=== PATIENT | male | born 1970 | race Asian ===

== ENCOUNTER 2020-09-26 09:36 | Outpatient (REF) | payer OTHER, SELFPAY ==
[2020-09-26 11:24] LABS: MANUAL DIFF FLAG NO
[2020-09-26 11:39] LABS: Glucose Urine UA NEG (NEG); Leukocyte Esterase Urine NEG (NEG); Nitrite Urine NEG (NEG); PH 7.5 (5.0-8.0); Specific Gravity - Urine 1.015 (1.005-1.025); Urine Blood NEG (NEG); Urine Ketones NEG (NEG); Urine Protein NEG (NEG-TRACE)
[2020-09-26 11:43] LABS: Appearance Urine HAZY; Color Urine YELLOW
[2020-09-26 11:48] LABS: Alanine Aminotransferase 31 U/L (0-40); Albumin Level 4.5 g/dL (3.5-5.0); Alkaline Phosphatase 104 U/L (39-117); Anion Gap 11 (12-20); Aspartate Amino Transferase 22 U/L (5-37); Bilirubin Total 0.6 mg/dL (0.0-1.0); Blood Urea Nitrogen 12 mg/dL (9-16); C Reactive Protein 0.14 mg/dL (< or = 0.50); Calcium 9.1 mg/dL (8.4-10.2); Carbon Dioxide 27 mmol/L (22-29); Chloride 108 mmol/L (96-108); Cholesterol 197 mg/dL; Estimated Glomerular Filt Rate > 60; Glucose Fasting 96 mg/dL (60-99); HDL Cholesterol 40 mg/dL; LDL Cholesterol Calculated 134 mg/dl; Potassium 4.3 mmol/L (3.3-5.1); Sodium 142 mmol/L (135-145); Total Protein 6.9 g/dL (6.5-8.0); Triglycerides 119 mg/dL; Troponin-I High Sensitivity < 3.5 ng/L (<3.5-35.0)
[2020-09-26 11:53] LABS: Basophils Percent Auto 0.6 % (0-2); Eosinophils Absolute Auto 0.3 X10*3/uL (0.0-0.4); Eosinophils Percent Auto 6.3 % (0-4); Hematocrit 46.5 % (42-52); Hemoglobin 14.8 g/dl (14.0-18.0); Imm Gran Abs Auto 0.01 X10*3/uL (0.00-0.03); Imm Gran Pct Auto 0.2 % (0.0-0.4); Lymphocytes Absolute Auto 1.9 X10*3/uL (1.2-4.9); Lymphocytes Percent Auto 38.8 % (20-40); Mean Corpuscular HGB Conc 31.8 g/dl (31.0-36.0); Mean Corpuscular Hemoglobin 25.8 pg (27.0-33.0); Mean Corpuscular Volume 81.2 fL (80-98); Mean Platelet Volume 9.1 fL (9.4-12.4); Monocytes Absolute Auto 0.4 X10*3/uL (0.1-1.2); Monocytes Percent Auto 7.7 % (2-11); Neutrophils Absolute Auto 2.3 X10*3/uL (2.0-8.3); Neutrophils Percent Auto 46.4 % (45-73); Platelet Count 256 X10*3/uL (160-400); Red Blood Count 5.73 X10*6/uL (4.60-5.80); Red Cell Distribution Width 14.2 % (11.0-16.0); White Blood Count 4.9 X10*3/uL (4.8-10.8)
[2020-09-26 12:12] LABS: Prostate Specific Antigen Scr 0.39 ng/mL (<0.05-4.0); TSH reflex Free T4 0.92 uIU/mL (0.32-4.0); Vitamin D 25-OH Total 21.6 ng/mL (>30)
== END 2020-09-26 09:37 | disposition home or self-care (01) ==
LOC: HO.LAB 09:36
PROVIDERS: PCP Internal Medicine; Visit Provider Internal Medicine
DX: Z00.00 Encounter for general adult medical examination without abnormal findings (principal); Z12.5 Encounter for screening for malignant neoplasm of prostate; R07.89 Other chest pain; E55.9 Vitamin D deficiency, unspecified; E66.3 Overweight; F17.200 Nicotine dependence, unspecified, uncomplicated
CPT/HCPCS: 36415; 80053; 80061; 81003; 82306; 84153; 84443; 84484; 85025; 86140

== ENCOUNTER → 2020-10-10 10:07 | Outpatient (BNVA) | payer OTHER, SELFPAY | PROVIDERS: PCP Internal Medicine; Visit Provider Physician Assistant | DX: Z12.11 Encounter for screening for malignant neoplasm of colon (principal) | CPT/HCPCS: 99202 ==

== ENCOUNTER 2020-11-15 08:30 | Day surgery (SDC) | payer OTHER, SELFPAY ==
[2020-11-09 15:45] VITALS: BMI 27.6
--- NOTE | 2020-11-14 08:25 | HO.ANESPROP2 ---
Documented by User: Liya Salinas 11/14/20 08:28 HPI - Anesthesia Eval Consult details Narrative: 49yo M for Colonoscopy [facility] Active Problems Active Problems: All Active Problems (Updated 10/10/20 @ 10:56 by Renetta Puentes PA-C) Annual physical exam (Acute) Colon cancer screening (Acute) Overweight (BMI 25.0-29.9) (Acute) Smoker (Acute) Chest discomfort (Acute) Past Medical History Medical History Chest discomfort Overweight (BMI 25.0-29.9) Smoker Family History Family History (Updated 10/10/20 @ 10:40 by Renetta Puentes PA-C) Unknown No family history of colorectal cancer Surgical History Surgical History (Updated 11/09/20 @ 15:45 by Olive Hobbs) No history of previous surgery Social History Social History (Updated 10/10/20 @ 10:40 by Renetta Puentes PA-C) Household Members Other:: no children Alcohol intake: never Patient Tobacco Use Status: Current everyday Tobacco user Tobacco use type: Cigarette Cigarettes Per Day: 8 Smoked in Last 30 Days: Yes Are you DNR?: No Advance Directives: No Advance Directives Information Provided: No Advance Directives on File: No 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 Meds Allergies Allergy/AdvReac Type Severity Reaction Status Date / Time No Known Allergies Allergy Verified 11/09/20 15:44 Exam Exam Date and Time: November 14, 2020 0825 Height,Weight and Vital Signs: Height 5 ft 7 in Weight 79.832 kg Pertinent Lab Results Pertinent Lab Results: Laboratory Tests 09/26/20 09/26/20 10:06 10:06 WBC 4.9 Hgb 14.8 Hct 46.5 Plt Count 256 Sodium 142 Potassium 4.3 Chloride 108 Carbon Dioxide 27 BUN 12 Creatinine 0.76 Assessment and Plan Assessment Anesthesia Assessment: Chart Reviewed Documented by User: Christen Romero 11/15/20 08:38 PMFSH Past Medical History Medical History Chest discomfort Overweight (BMI 25.0-29.9) Smoker Functional capacity: independent ambulation Family History Family History (Updated 10/10/20 @ 10:40 by Renetta Puentes PA-C) Unknown No family history of colorectal cancer Family history of problems with anesthesia: No Surgical History Surgical History (Updated 11/09/20 @ 15:45 by Olive Hobbs) No history of previous surgery History of Problems with Anesthesia: No Social History Social History (Updated 10/10/20 @ 10:40 by Renetta Puentes PA-C) Household Members Other:: no children Alcohol intake: never Patient Tobacco Use Status: Current everyday Tobacco user Tobacco use type: Cigarette Cigarettes Per Day: 8 Smoked in Last 30 Days: Yes Are you DNR?: No Advance Directives: No Advance Directives Information Provided: No Advance Directives on File: No 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
--- NOTE | 2020-11-15 09:00 | MHC.SHP ---
Pre-Procedural Eval Section A Date of Service: 11/15/20 Section B Chief Complaint: Screening Relevant Family History (Specify if Yes): No Relevant Social History: Tobacco Use Present Medications: see Short Stay Collaborative assessment Medical History: Significant History (Overweight (BMI 25.0-29.9) Smoker) History of Previous Operations: No relevant previous surgery Allergies: Allergies Allergy/AdvReac Type Severity Reaction Status Date / Time No Known Allergies Allergy Verified 11/09/20 15:44 Review of Systems Sugical H&P ROS: Negative: Constitution, Cardiovascular, Respiratory, Neurological, Psychiatric, Hem-Onc, Allergic/Immunologic, Gastrointestinal, Genitourinary, Musculoskeletal, Integumentary, Endocrine and Eyes/Ears/Nose/Throat Exam Surgical H&P Exam: Normal: HEENT, Normal: Heart, Normal: Lungs, Normal: Extremities, Normal: Abdomen, Normal: Skin and Normal: Neurological Plan Diagnosis/Plan: Unchanged I have reviewed the history and physical and performed a pertinent physical examination on my patient. No changes have occurred unless specified.
[2020-11-15 09:01] VITALS: BP 114/71; PULSE 60; RESP 16; TEMP 36.2; O2SAT 96
[2020-11-15] MEDS: Lactated Ringers 1,000 ML 100 ML IVCONT (09:19)
--- NOTE | 2020-11-15 09:49 | P.OP_ITS ---
Operative Note Operative Note Date of Service: 11/15/20 Narrative: Operative Information Procedure Description: Colonoscopy COLONOSCOPY Instrument: Olympus variable stiffness pediatric scope 190L Colonoscopy Monitoring: Vital signs and clinical assessment, continuous EKG monitoring, Pulse oximetry, Carbon Dioxide monitoring and blood pressure monitoring were done throughout the procedure. Colon withdrawal time was 10 minutes. Procedure: The patient was placed in the left lateral decubitis position and pre-procedure medications were administered. After a digital rectal examination of the ano-rectum, the video colonoscope was inserted into the rectum and advanced through the colon to the cecum/TI. The colonoscope was slowly withdrawn in a retrograde panoramic fashion and the colon mucosa was carefully examined including a retroflexed view of the rectum. Findings and interventions are described below. Procedure Difficulty:easy Findings: Terminal Ileum-normal Cecum: 4 mm sessile polyp at appendiceal orifice removed with biopsy forceps Ascending Colon: normal Transverse Colon -normal Descending Colon: 5-6 mm sessile polyp removed with forceps Sigmoid Colon: 11-12 mm sessile polyp removed with cold snare Rectum: Retroflexion with small internal hemorrhoids, grade I Anorectum - normal Colon preparation: [place] Bowel Preparation Scale Right colon; 3 Transverse colon: 3 Left colon; 3 (0 = Unprepared colon segment with mucosa not seen due to solid stool that cannot be cleared. 1 = Portion of mucosa of the colon segment seen, but other areas of the colon segment not well seen due to staining, residual stool and/or opaque liquid. 2 = Minor amount of residual staining, small fragments of stool and/or opaque liquid, but mucosa of colon segment seen well. 3 = Entire mucosa of colon segment seen well with no residual staining, small fragments of stool or opaque liquid) Impression and Post Procedure Diagnosis: polyps internal hemorrhoids Plan: High fiber diet leaflet Avoid straining at stool, epsom salts and sitz bath, anusol supps or cream Repeat Colonoscopy in 3-5 years or earlier if clinically indicated Above findings were reviewed with the patient and relevant handouts were provided if indicated.
--- NOTE | 2020-11-15 09:49 | PM.OP ---
Brief Operative Note Date of Service: 11/15/20 Pre-op diagnosis: colon screening Post-op diagnosis: same Procedure: see op note Surgeon: Gabriel Rivera MD Anesthesia: MAC Was an Airconditioning Engineer used for this Procedure?: No Estimated blood loss (mL): 0 Condition: stable Disposition: PACU
--- NOTE | 2020-11-15 10:22 | P.CONAN_ITS ---
[facility] Active Problems Active Problems: All Active Problems (Updated 10/10/20 @ 10:56 by Renetta henley PA-C) Annual physical exam (Acute) Colon cancer screening (Acute) Overweight (BMI 25.0-29.9) (Acute) Smoker (Acute) Chest discomfort (Acute) Past Medical History Medical History Chest discomfort Overweight (BMI 25.0-29.9) Smoker Functional capacity: independent ambulation Family History Family History (Updated 10/10/20 @ 10:40 by Renetta Puentes PA-C) Unknown No family history of colorectal cancer Family history of problems with anesthesia: No Surgical History Surgical History (Updated 11/09/20 @ 15:45 by Olive Hobbs) No history of previous surgery History of Problems with Anesthesia: No Social History Social History (Updated 10/10/20 @ 10:40 by Renetta Puentes PA-C) Household Members Other:: no children Alcohol intake: never Patient Tobacco Use Status: Current everyday Tobacco user Tobacco use type: Cigarette Cigarettes Per Day: 8 Smoked in Last 30 Days: Yes Are you DNR?: No Advance Directives: No Advance Directives Information Provided: No Advance Directives on File: No 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 Allergies Allergy/AdvReac Type Severity Reaction Status Date / Time No Known Allergies Allergy Verified 11/09/20 15:44 Active Medications: Current Medications Generic Name Dose Route Start Last Admin Trade Name Freq PRN Reason Stop Dose Admin Albuterol Sulfate 2.5 mg 11/15/20 08:34 Albuterol Sulfate (0.083%) 2.5 Mg/3 Ml Vial.Neb INHALE ONCE PRN Shortness of Breath/Wheezing Lactated Ringer's 1,000 mls @ 100 mls/hr 11/15/20 08:45 11/15/20 09:19 Lr IVCONT 100 mls/hr .Q10H TORIN Administration Exam Exam Date and Time: November 15, 2020 1022 Height,Weight and Vital Signs: Height 5 ft 7 in Weight 79.832 kg Last Vital Signs Temp 97.1 F 11/15/20 09:01 Pulse 60 11/15/20 09:01 Resp 16 11/15/20 09:01 BP 114/71 11/15/20 09:01 Pulse Ox 96 11/15/20 09:01 Airway TM Dist: >3cm Neck ROM: Full Heart: RRR Lungs: CTA Assessment and Plan Final Anesthetic Review Family History of Problems with Anesthesia: No History of Problems with Anesthesia: No
[2020-11-15 10:30] VITALS: BP 87/46; PULSE 56; RESP 16; TEMP 36; O2SAT 96
[2020-11-15 10:35] VITALS: BP 88/55
[2020-11-15 10:45] VITALS: BP 104/66; PULSE 59; RESP 16; O2SAT 97
--- NOTE | 2020-11-15 11:08 | PC.NURSE ---
took over 10 minutes to get phone certified court interpreter for mandarin. some results explained. md unavailable.
--- NOTE | 2020-11-15 11:08 | PC.NURSE ---
certified court/medical interpreter id [id number]
== END 2020-11-15 11:42 | disposition home or self-care (01) ==
PROVIDERS: PCP Internal Medicine; Visit Provider Internal Medicine Gastroenterology
PROC: 0DJD8ZZ Inspection of Lower Intestinal Tract, Via Natural or Artificial Opening Endoscopic (ICD-10-PCS; CPT 45378; principal; 2020-11-15 09:40)
DX: Z12.11 Encounter for screening for malignant neoplasm of colon (principal); D12.5 Benign neoplasm of sigmoid colon; K63.5 Polyp of colon; K64.0 First degree hemorrhoids; F17.210 Nicotine dependence, cigarettes, uncomplicated
CPT/HCPCS: 45385; 45380; 88305

== ENCOUNTER 2020-12-20 09:58 | Emergency (ER) | payer OTHER, SELFPAY ==
[2020-12-20 10:04] VITALS: BP 127/83; PULSE 83; RESP 18; TEMP 36.9; O2SAT 97; BMI 26.6
--- NOTE | 2020-12-20 11:52 | ED.SKABFB ---
HPI - Skin/Abscess/Foreign Bdy General Chief complaint: Skin/Abscess/Foreign Body Stated complaint: chest pain - states tumor? 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 Symptoms present for several days. No fevers or chills. No prior history of similar issues. Related Data Previous Rx's Medication Instructions Recorded bisacodyl 5 mg tablet,delayed 10 mg PO ONCE 1 Days #2 tab 10/10/20 release (Dulcolax (bisacodyl)) polyethylene glycol 3350 17 238 g PO ONCE 1 Days #238 g 10/10/20 gram/dose oral powder (Miralax) doxycycline hyclate 100 mg capsule 100 mg PO BID #20 cap 12/20/20 Allergies Allergy/AdvReac Type Severity Reaction Status Date / Time No Known Allergies Allergy Verified 11/09/20 15:44 Review of Systems Constitutional: Constitutional: Reports no additional constitutional complaints Cardiovascular: Cardiovascular: Reports no additional cardiovascular complaints Respiratory: Respiratory: Reports no additional respiratory complaints Gastrointestinal: Gastrointestinal: Reports no additional gastrointestinal complaints Musculoskeletal: Musculoskeletal: Reports no additional musculoskeletal complaints Integumentary/Breasts: Comments: Painful red area right lateral chest wall PMFSH Past Medical History Medical History Chest discomfort Overweight (BMI 25.0-29.9) Smoker Surgical History (Updated 11/09/20 @ 15:45 by Olive Hobbs, NIKIA) No history of previous surgery Family History Family History (Updated 10/10/20 @ 10:40 by Renetta Puentes PA-C) Unknown No family history of colorectal cancer Social History Social History (Updated 10/10/20 @ 10:40 by Renetta Puentes PA-C) Household Members Other:: no children Alcohol intake: never Patient Tobacco Use Status: Current everyday Tobacco user Tobacco use type: Cigarette Cigarettes Per Day: 8 Advance Directives: Yes Advance Directives Information Provided: Yes Advance Directives on File: No 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 Central area of fluctuance approximately 3 cm across. No purulent drainage Resp: Other: No respiratory distress GI: Other: Soft nontender nondistended Skin: Other: See above description of chest wall for large area of cellulitis and abscess Neuro: Other: Awake alert oriented without gross motor defect Course Course Course Narrative: Patient tolerated procedure well without complications. Doxycycline given the Emergency Department. Will discharge home with prescription for doxycycline Procedures Abscess I/D Site: chest Side (if applicable): right Local Anesthetic: lidocaine 1% Amount of anesthesia used (mL): 8 Amount of fluid expressed (mL): 40 Sent for culture/gram staining?: No Discharge Plan Discharge Clinical Impression: Abscess of skin or subcutaneous tissue Patient Disposition: Home, Self-Care Instructions: Abscess Incision and Drainage (DC) Additional Instructions: Be sure to shower and to use warm soaks at least twice daily. Take doxycycline until it is finished in 10 days. Return if the area gets worse Prescriptions: New doxycycline hyclate 100 mg capsule 100 mg PO BID Qty: 20 RF: 0 No Action bisacodyl [Dulcolax (bisacodyl)] 5 mg tablet,delayed release (DR/EC) 10 mg PO ONCE 1 Days Qty: 2 RF: 0 polyethylene glycol 3350 [Miralax] 17 gram/dose powder 238 g PO ONCE 1 Days Qty: 238 RF: 0
[2020-12-20] MEDS: Lidocaine HCl 1 % 20 ML VIAL INFILTRATI (12:11)
== END 2020-12-20 12:39 | disposition home or self-care (01) ==
PROVIDERS: Emergency Provider Emergency Medicine; PCP Internal Medicine
DX: L02.213 Cutaneous abscess of chest wall (principal); F17.210 Nicotine dependence, cigarettes, uncomplicated; Z71.6 Tobacco abuse counseling; Z79.899 Other long term (current) drug therapy
CPT/HCPCS: 99283; 99284

== ENCOUNTER 2022-06-18 09:46 | Outpatient (REF) | payer OTHER, SELFPAY ==
[2022-06-18 10:03] LABS: MANUAL DIFF FLAG NO
[2022-06-18 10:50] LABS: Appearance Urine Clear; Color Urine Yellow; Glucose Urine UA Negative (Negative); Leukocyte Esterase Urine Negative (Negative); Nitrite Urine Negative (Negative); PH 6.5 (5.0-9.0); Specific Gravity - Urine 1.025 (1.005-1.025); Urine Blood Negative (Negative); Urine Ketones Negative (Negative); Urine Protein Negative (Neg-Trace)
[2022-06-18 10:51] LABS: Basophils Percent Auto 0.8 % (0-2); Eosinophils Absolute Auto 0.3 X10*3/uL (0.0-0.4); Eosinophils Percent Auto 5.8 % (0-4); Hematocrit 48.8 % (42.0-52.0); Hemoglobin 15.6 g/dl (14.0-18.0); Imm Gran Abs Auto 0.02 X10*3/uL (0.00-0.03); Imm Gran Pct Auto 0.4 % (0.0-0.4); Lymphocytes Absolute Auto 1.9 X10*3/uL (1.2-4.9); Mean Corpuscular Hemoglobin 26.2 pg (27.0-33.0); Mean Platelet Volume 9.1 fL (9.4-12.4); Monocytes Absolute Auto 0.4 X10*3/uL (0.1-1.2); Neutrophils Absolute Auto 2.5 x10*3/uL (2.0-8.3); Platelet Count 252 X10*3/uL (160-400); Red Blood Count 5.95 X10*6/uL (4.60-5.80); Red Cell Distribution Width 14.6 % (11.0-16.0); White Blood Count 5.1 X10*3/uL (4.8-10.8)
[2022-06-18 11:46] LABS: Alanine Aminotransferase 25 U/L (0-40); Albumin Level 4.3 g/dL (3.5-5.0); Alkaline Phosphatase 93 U/L (39-117); Anion Gap 12 (12-20); Aspartate Amino Transferase 19 U/L (5-37); Bilirubin Total 0.5 mg/dL (0.0-1.0); Blood Urea Nitrogen 20 mg/dL (9-16); Calcium 8.7 mg/dL (8.4-10.2); Carbon Dioxide 24 mmol/L (22-29); Chloride 111 mmol/L (96-108); Cholesterol 240 mg/dL; Estimated Glomerular Filt Rate > 60; Glucose Fasting 111 mg/dL (60-99); HDL Cholesterol 46 mg/dL; LDL Cholesterol Calculated 174 mg/dl; Potassium 4.4 mmol/L (3.3-5.1); Sodium 143 mmol/L (135-145); Total Protein 6.8 g/dL (6.5-8.0); Triglycerides 100 mg/dL
[2022-06-18 12:04] LABS: Prostate Specific Antigen Scr 1.48 ng/mL (<0.05-4.0); TSH reflex Free T4 0.87 uIU/mL (0.32-4.0); Vitamin D 25-OH Total 12.9 ng/mL (>30)
== END 2022-06-18 09:47 | disposition home or self-care (01) ==
LOC: HO.LAB 09:46
PROVIDERS: PCP Internal Medicine; Visit Provider Internal Medicine
DX: Z00.00 Encounter for general adult medical examination without abnormal findings (principal); Z12.5 Encounter for screening for malignant neoplasm of prostate; E78.00 Pure hypercholesterolemia, unspecified; R30.0 Dysuria; E55.9 Vitamin D deficiency, unspecified
CPT/HCPCS: 36415; 80053; 80061; 81003; 82306; 84153; 84443; 85025

== ENCOUNTER 2022-06-24 10:17 | Outpatient (REF) | payer OTHER, SELFPAY ==
--- NOTE | ~2022-06-24 | XR_ITS ---
EXAMINATION: XR CHEST CLINICAL INFORMATION: R06.00 - Dyspnea, unspecified COMPARISON: Chest radiographs 08/04/2018 TECHNIQUE: 2 views of the chest were obtained. FINDINGS: The lungs are clear. There is no airspace consolidation, groundglass opacity, or effusion. The heart is normal in size. The vascularity is normal. The hilar and mediastinal contours are stable. No acute bony abnormality. XR/XR chest 2V IMPRESSION: Unremarkable examination.
== END 2022-06-24 10:18 | disposition home or self-care (01) ==
LOC: HO.XRAY 10:17
PROVIDERS: PCP Internal Medicine; Visit Provider Internal Medicine
DX: R06.00 Dyspnea, unspecified (principal); F17.200 Nicotine dependence, unspecified, uncomplicated
CPT/HCPCS: 71046

== ENCOUNTER → 2022-07-01 08:53 | Outpatient (REF) | payer OTHER, SELFPAY ==
--- NOTE | 2022-07-01 08:59 | ECG_ITS ---
Test Reason : chest pain Blood Pressure : / mmHG Vent. Rate : 062 BPM Atrial Rate : 062 BPM P-R Int : 188 ms QRS Dur : 098 ms QT Int : 394 ms P-R-T Axes : 079 062 041 degrees QTc Int : 399 ms Normal sinus rhythm Normal ECG When compared with ECG of 04-AUG-2018 11:34, No significant change was found Referred By: Devon Mendoza Electronically Signed By:BALDO LUO MD
--- NOTE | 2022-07-01 09:00 | CA_ITS ---
Acquisition Time: 2022-07-01 09:19:17 Total Exercise Time: 00:06:41 Test Indications: CP Medications: SEE H Protocol: RAHEEL Max HR: 125 BPM 73% of Pred: 170 BPM Max BP: 154/066 mmHG Max Work Load: 8.0 METS Exercise stress test with exercise 6 min 41 sec of Raheel protocol, acvhieving 73% MPHR with request to stop due to fatigue and sob, with 3/10 mid chest discomfort at baseline ( which he described as continual and worse with pressing on area) which did not change with exercise, without arrythmia, with normotensive response to exercise, with decreased exercise capacity, with nondiagnostic EKG for ischemia due to suboptimal heart rate. In recovery he reported that his mid chest discomfort was up to 4/10 with inspiration. Test reviewed with Dr Lorna Vines sent to PCP with the above report. Referred By: Devon Mendoza Overread By: WOLF COATES
== END ==
LOC: HO.CARD 08:53
PROVIDERS: Visit Provider Internal Medicine
DX: R07.89 Other chest pain (principal)
CPT/HCPCS: 93005; 93017

== ENCOUNTER 2022-11-04 11:00 | Outpatient (AMB) | payer OTHER, SELFPAY ==
[2022-11-04 11:04] VITALS: BP 116/80; PULSE 71; O2SAT 97; BMI 25.8
--- NOTE | 2022-11-04 11:04 | MHC.PC.OV ---
Vital Signs 11/04/22 11:04 Height 5 ft 7 in Weight 165 lb BMI 25.8 BP 116/80 Blood Pressure Location Lt brachial Position Sitting Pulse 71 Pulse Source Pulse Oximeter Pulse Oximetry (%) 97 Oxygen Delivery Method Room Air Intake Visit Reasons: Follow Up Transporter Driver Required: No Accompanied by: Self / Same As Patient Allergies No Known Allergies Allergy (Verified 11/04/22 12:18) Medication List - Last Reconciled 11/04/22 by Devon Mendoza MD mometasone 0.1% 1 appl topical DAILY PRN prednisone 20 mg PO DAILY 5 days Tobacco use date assessed: 11/04/22 Dental Screening Dental Screen Date: 11/04/22 Did you have a dental visit in the last 12 months?: No Did you have a dental problem in the last 6 months where you did not have access to dental care?: No Was dental information given to patient?: No HPI Follow Up HPI Details Patient comes in today for his follow up visit States that he continues to experience on and off mild SOB and chest discomfort with increasing activity although he admits that he also does not really do too much in terms of activity so his symptoms do not occur frequently Did have an exercise stress test done a few months ago that he could not complete due to increased fatigue and SOB but there were no EKG changes noted throughout his test He also had negative chest x-rays done a few months ago Adds that he's had some scattered itchy rash all over, especially over his arms and legs, for a few days now Relates that he went fishing sometime last week and woke up the next day with the rash over his arms and legs, and they have not really cleared up much since He denies any headaches or dizziness No nausea/vomiting, no abdominal pain No change in bowel habits noted Would also like to know how he did on his labs after his last visit back in June 2022 Patient also brought in a clearance form for his eyesight; states that he recently [facility] [place] to see an eye doctor to get his form filled out but was advised that he has no active patient record there and will need his PCP to send them a referral first before they can schedule an appointment to see him [facility] Medical History (Updated 11/04/22 @ 12:47 by Devon Mendoza MD) Chest discomfort Impaired fasting glucose Overweight (BMI 25.0-29.9) Smoker Vitamin D deficiency Surgical History Hx of colonoscopy (~11/15/20) Family History Father Heart disease Other No family history of colorectal cancer Social History Household Members Other:: no children Housing: House Alcohol intake: never Patient Tobacco Use Status: Current everyday Tobacco user Tobacco use type: Cigarette Cigarettes Per Day: 8 e-Cigarette/Vaping Use: Never Used Second Hand Smoke Exposure: Yes 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 1. Little interest or pleasure in doing things: not at all 2. Feeling down, depressed, or hopeless: not at all 3. Trouble falling or staying asleep, or sleeping too much: not at all 4. Feeling tired or having little energy: not at all 5. Poor appetite or overeating: not at all 6. Feeling bad about yourself - or that you are a failure or have let yourself or your family down: not at all 7. Trouble concentrating on things, such as reading the newspaper or watching television: not at all 8. Moving or speaking so slowly that other people could have noticed. Or the opposite - being so fidgety or restless that you have been moving around a lot more than usual: not at all 9. Thoughts that you would be better off or of hurting yourself in some way: not at all Total score: 0 Depression Screening Interpretation: Negative 82201 - PHQ-9 Billing: Yes Source: Developed by Drs. Lucio Do, Stefanie Liu, Nick Willingham and colleagues, with an educational renetta from [employer]. Thrive Questionnaire Date Thrive assessed: 11/04/22 I am a: Patient What is your living situation today?: I have a steady place to live Within the past 12 months, did the food you bought not last and you didn't have the money to get more?: Never true Within the past 12 months, did you worry whether your food would run out before you got money to buy more?: Never true Do you have trouble paying for medicines?: No Do you have trouble getting transportation to medical appointments?: No Do you have trouble paying your heating and electricity bill?: No Do you have trouble taking care of your child, family member or friend?: No Do you have trouble with day-to-day activities such as bathing, preparing meals, shopping, managing finances, etc.?: No Are you currently unemployed and looking for a job?: No Are you interested in more education?: No Please select the resources that you would like help with: None Currently or been in a relationship where the following occur: no concerns reported AUDIT C Alcohol Use Questionnaire (AUDIT-C) 1. How often do you have a drink containing alcohol?: Never 3. How often do you have six or more drinks on one occasion?: Never Total Score: 0 Score Reviewed/Action Taken: Yes KELY-7 AMB Questionnaire KELY-7 Date KELY - 7 assessed: 11/04/22 Feeling nervous, anxious, or on edge: 0 = Not at all Not being able to stop or control worryin = Not at all Worrying too much about different things: 0 = Not at all Trouble relaxin = Not at all Being so restless that it is hard to sit still: 0 = Not at all Becoming easily annoyed or irritable: 0 = Not at all Feeling afraid as if something awful might happen: 0 = Not at all Total KELY-7 score (0-4 normal; 5-9 mild; 10-14 moderate; 15-21 severe): 0 Source: Developed by Drs. Lucio Do, Stefanie Liu, Nick Willingham and colleagues, with an educational renetta from [employer]. Review of Systems Const Denies fatigue, Denies fever(s) and Denies headache(s) ENT Denies dysphagia, Denies dizziness, Denies headache(s), Denies odynophagia and Denies sore throat Card Denies chest pain (but reports (+) on and off chest discomfort - see HPI), Denies rapid heart rate, Denies irregular heart rhythm, Denies palpitations and Reports dyspnea (mild, on and off - see HPI) Resp Denies chest congestion, Denies cough and Reports dyspnea (mild, on and off - see HPI) GI Denies abdominal pain, Denies constipation, Denies dysphagia, Denies heartburn, Denies diarrhea, Denies nausea, Denies odynophagia and Denies vomiting Denies difficulty urinating, Denies dysuria and Denies urinary frequency Musc Denies back pain and Denies arthralgias Skin/Breast Details: scattered itchy rash, especially over his arms and legs Neuro Denies dizziness, Denies headache(s) and Denies paresthesias Endo Denies fatigue and Denies palpitations Physical exam (Primary Care) Vital Signs: Last Vital Signs Pulse 71 11/04/22 11:04 BP 116/80 11/04/22 11:04 Pulse Ox 97 11/04/22 11:04 Oxygen Delivery Method Room Air 11/04/22 11:04 BMI result Body Mass Index 25.8 Tobacco/Smoking Status: Tobacco use Status Tobacco use date assessed 11/04/22 11/04/22 11:11 Patient Tobacco Use Status Current everyday Tobacco 11/04/22 11:11 Tobacco use type Cigarette 11/04/22 11:11 e-Cigarette/Vaping Use Never Used 11/04/22 11:11 PHQ-9: PHQ-9 Score PHQ-9: Total score 0 11/04/22 11:11 Depression Screening Interpretation: Negative Thrive Assessment: Date of Thrive Assessment Date Thrive assessed 11/04/22 11/04/22 11:11 Currently or been in a relationship where the following occur: no concerns reported Const General: no acute distress and alert [facility] Throat: Yes posterior oropharynx normal and Yes tonsils normal (no TP congestion) Neck Neck: Yes no lymphadenopathy and Yes supple Thyroid: Thyroid normal Chest Chest palpation & inspection: normal palpation of entire chest wall (no reproducible tenderness on palpation over the chest wall) Resp Auscultation: clear to auscultation bilaterally, no rales and no wheezes Cardio Rate: regular rate Rhythm: regular rhythm Heart sounds: no murmurs GI Palpation (GI): Soft to palpation and nontender Auscultation: normal bowel sounds Skin Other: (+) scattered erythematous weeping rash over both forearms and lower legs (bilaterally) Extrem General: Yes no clubbing, cyanosis or edema Results Reviewed Results Reviewed: Laboratory Tests 06/18/22 06/18/22 06/18/22 10:00 10:01 10:01 WBC 5.1 Hgb 15.6 Hct 48.8 Plt Count 252 Sodium 143 Potassium 4.4 Creatinine 0.77 Estimated GFR > 60 Fasting Glucose 111 H Calcium 8.7 AST 19 ALT 25 Triglycerides 100 Cholesterol 240 LDL Cholesterol, Calc 174 HDL Cholesterol 46 PSA Screen 1.48 25-OH Vitamin D Total 12.9 TSH 0.87 Ur Specific Range 1.025 Urine Protein Negative Urine Glucose (UA) Negative Urine Blood Negative Assessment and Plan Assessment & Plan (1) Pure hypercholesterolemia: Code(s): E78.00 - Pure hypercholesterolemia, unspecified Plan: Results of his labs done back in June 2022 reviewed and discussed with patient - cautioned/advised that his cholesterol numbers have again increased significantly from previous on his recent labs Reinforced low cholesterol diet Will recheck his labs and fasting lipids in 6 months for follow up (2) Impaired fasting glucose: Code(s): R73.01 - Impaired fasting glucose Plan: Advised that his FBS was elevated on his recent labs at 111 mg/dl Reinforced low calorie diet Will recheck FBS and check HgbA1c in 6 months for follow up / further evaluation (3) Vitamin D deficiency: Code(s): E55.9 - Vitamin D deficiency, unspecified Plan: Advised that his Vitamin D level remains low on his labs and has declined further from a year ago Will start him on Vitamin D3 2000 units QD (4) Chest discomfort: Code(s): R07.89 - Other chest pain Plan: Chest x-rays done earlier this year came out normal Stress testing done a few months ago did not show any EKG changes although patient could not complete the test due to increasing fatigue and SOB Will send him for PFTs to complete his evaluation as patient continues to complain of frequent exertional chest discomfort (5) Poison colin dermatitis: Code(s): L23.7 - Allergic contact dermatitis due to plants, except food Plan: Will start him on oral Prednisone 20 mg QD x 5 days and Mometasone 0.1% cream apply QD to rash PRN (6) Examination of eyes and vision: Code(s): Z01.00 - Encounter for examination of eyes and vision without abnormal findings Plan: [facility] to [facility] and to help him complete his vision exam form (7) Smoker: Code(s): F17.200 - Nicotine dependence, unspecified, uncomplicated Plan: Counseled again on smoking cessation (8) Overweight (BMI 25.0-29.9): Code(s): E66.3 - Overweight Plan: Reinforced diet/exercise as tolerated/lose weight Plan To return in 6 months for his next annual physical examination Orders: Orders PFT pulmonary function test Today F17.200 - Nicotine dependence, unspecified, uncomplicated, R06.00 - Dyspnea, unspecified, R07.89 - Other chest pain Comprehensive [place]. Panel Fast 6 Months Z00.00 - Encounter for general adult medical examination without abnormal findings Lipid Panel 6 Months E78.00 - Pure hypercholesterolemia, unspecified, Z00.00 - Encounter for general adult medical examination without abnormal findings Prostate Specific Antigen Scr 6 Months Z00.00 - Encounter for general adult medical examination without abnormal findings TSH reflex Free T4 6 Months Z00.00 - Encounter for general adult medical examination without abnormal findings Vitamin D 25-OH Total 6 Months E55.9 - Vitamin D deficiency, unspecified, Z00.00 - Encounter for general adult medical examination without abnormal findings Complete Blood Count Auto Diff 6 Months F17.200 - Nicotine dependence, unspecified, uncomplicated, Z00.00 - Encounter for general adult medical examination without abnormal findings UA CC w/rflx Micro + Cult 6 Months R30.0 - Dysuria, Z00.00 - Encounter for general adult medical examination without abnormal findings Hemoglobin A1c 6 Months R73.01 - Impaired fasting glucose Referrals Ophthalmology Referral H57.9 - Unspecified disorder of eye and adnexa Medications: New prednisone 20 mg PO DAILY 5 tabs 0RF 5 days mometasone 0.1% 1 appl topical DAILY PRN 45 grams 0RF rash cholecalciferol (vitamin D3) 50 mcg PO DAILY 90 caps 3RF 90 days E55.9 - Vitamin D deficiency, unspecified Coding Level of Care Code Est Pt Level 4 (62002) Diagnoses Pure hypercholesterolemia E78.00 Impaired fasting glucose R73.01 Vitamin D deficiency E55.9 Chest discomfort R07.89 Poison colin dermatitis L23.7 Examination of eyes and vision Z01.00 Smoker F17.200 Overweight (BMI 25.0-29.9) E66.3
== END 2022-11-04 12:18 | disposition home or self-care (01) ==
PROVIDERS: PCP Internal Medicine; Visit Provider Internal Medicine
DX: E78.00 Pure hypercholesterolemia, unspecified (principal); E55.9 Vitamin D deficiency, unspecified; F17.210 Nicotine dependence, cigarettes, uncomplicated; E66.3 Overweight; R73.01 Impaired fasting glucose; R07.89 Other chest pain; L23.7 Allergic contact dermatitis due to plants, except food; Z68.25 Body mass index [BMI] 25.0-25.9, adult
CPT/HCPCS: 99214

== ENCOUNTER 2023-05-05 10:41 | Outpatient (AMB) | payer OTHER, SELFPAY ==
[2023-05-05 10:44] VITALS: BP 110/80; PULSE 78; O2SAT 96; BMI 26.2
--- NOTE | 2023-05-05 10:44 | MHC.PC.OV ---
Vital Signs 05/05/23 10:44 Height 5 ft 7 in Weight 167 lb 2 oz BMI 26.2 BP 110/80 Blood Pressure Location Lt brachial Position Sitting Pulse 78 Pulse Source Pulse Oximeter Pulse Oximetry (%) 96 Oxygen Delivery Method Room Air Intake Visit Reasons: 6 month f/u Children Librarian Required: No Accompanied by: Self / Same As Patient Allergies No Known Allergies Allergy (Verified 05/05/23 11:03) Medication List - Last Reconciled 05/05/23 by Devon Mendoza MD cholecalciferol (vitamin D3) 50 mcg PO DAILY 90 days mometasone 0.1% 1 appl topical DAILY PRN Tobacco use date assessed: 05/05/23 Dental Screening Dental Screen Date: 05/05/23 Did you have a dental visit in the last 12 months?: No Did you have a dental problem in the last 6 months where you did not have access to dental care?: No Was dental information given to patient?: No HPI 6 month f/u HPI Details Patient comes in today for his follow up visit States that he feels okay He denies any headaches or dizziness Denies any chest pains, no increased SOB but he continues to experience occasional mild chest discomfort although these do not seem to be associated with activity or exertion He had stress testing done last year (June 2022) which came out okay Was referred for PFTs for further evaluation of his symptoms but states that he was never contacted for an appt and did not get this done No nausea/vomiting, no abdominal pain No change in bowel habits noted He was not able to get his follow up labs done prior to his appt today - states that he can go and get them done now as he has not yet eaten anything this morning [facility] Medical History Impaired fasting glucose Vitamin D deficiency Overweight (BMI 25.0-29.9) Smoker Chest discomfort Surgical History Hx of colonoscopy (~11/15/20) Family History Father Heart disease Other No family history of colorectal cancer Social History Household Members Other:: no children Housing: House Alcohol intake: never Patient Tobacco Use Status: Current everyday Tobacco user Tobacco use type: Cigarette Cigarettes Per Day: 8 e-Cigarette/Vaping Use: Never Used Second Hand Smoke Exposure: Yes 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 1. Little interest or pleasure in doing things: not at all 2. Feeling down, depressed, or hopeless: not at all 3. Trouble falling or staying asleep, or sleeping too much: not at all 4. Feeling tired or having little energy: not at all 5. Poor appetite or overeating: not at all 6. Feeling bad about yourself - or that you are a failure or have let yourself or your family down: not at all 7. Trouble concentrating on things, such as reading the newspaper or watching television: not at all 8. Moving or speaking so slowly that other people could have noticed. Or the opposite - being so fidgety or restless that you have been moving around a lot more than usual: not at all 9. Thoughts that you would be better off or of hurting yourself in some way: not at all Total score: 0 Depression Screening Interpretation: Negative Depression Screening Done: Yes 75719 - PHQ-9 Billing: Yes Source: Developed by Drs. Lucio Do, Stefanie Liu, Nick Willingham and colleagues, with an educational renetta from [employer]. Thrive Questionnaire Date Thrive assessed: 05/05/23 I am a: Patient What is your living situation today?: I have a steady place to live Within the past 12 months, did the food you bought not last and you didn't have the money to get more?: Never true Within the past 12 months, did you worry whether your food would run out before you got money to buy more?: Never true Do you have trouble paying for medicines?: No Do you have trouble getting transportation to medical appointments?: No Do you have trouble paying your heating and electricity bill?: No Do you have trouble taking care of your child, family member or friend?: No Do you have trouble with day-to-day activities such as bathing, preparing meals, shopping, managing finances, etc.?: No Are you currently unemployed and looking for a job?: No Are you interested in more education?: No Please select the resources that you would like help with: None Currently or been in a relationship where the following occur: no concerns reported THRIVE Score: 0 AUDIT C Alcohol Use Questionnaire (AUDIT-C) 1. How often do you have a drink containing alcohol?: Never 3. How often do you have six or more drinks on one occasion?: Never Total Score: 0 Score Reviewed/Action Taken: Yes KELY-7 AMB Questionnaire KELY-7 Date KELY - 7 assessed: 05/05/23 Feeling nervous, anxious, or on edge: 0 = Not at all Not being able to stop or control worryin = Not at all Worrying too much about different things: 0 = Not at all Trouble relaxin = Not at all Being so restless that it is hard to sit still: 0 = Not at all Becoming easily annoyed or irritable: 0 = Not at all Feeling afraid as if something awful might happen: 0 = Not at all Total KELY-7 score (0-4 normal; 5-9 mild; 10-14 moderate; 15-21 severe): 0 Source: Developed by Drs. Lucio Do, Stefanie Liu, Nick Willingham and colleagues, with an educational renetta from [employer]. Review of Systems Const Denies chills, Denies fatigue, Denies fever(s) and Denies headache(s) ENT Denies dysphagia, Denies dizziness, Denies otalgia, Denies headache(s), Denies neck pain, Denies odynophagia and Denies sore throat Card Denies chest pain (but still reports (+) on and off chest discomfort ), Denies rapid heart rate, Denies irregular heart rhythm, Denies palpitations and Reports dyspnea (mild, on and off) Resp Denies chest congestion, Denies cough and Reports dyspnea (mild, on and off) GI Denies abdominal pain, Denies constipation, Denies dysphagia, Denies heartburn, Denies diarrhea, Denies nausea, Denies odynophagia and Denies vomiting Denies difficulty urinating, Denies dysuria and Denies urinary frequency Musc Denies back pain, Denies arthralgias and Denies neck pain Skin/Breast Denies rash Neuro Denies dizziness, Denies headache(s) and Denies paresthesias Endo Denies fatigue and Denies palpitations Physical exam (Primary Care) Vital Signs: Last Vital Signs Pulse 78 05/05/23 10:44 BP 110/80 05/05/23 10:44 Pulse Ox 96 05/05/23 10:44 Oxygen Delivery Method Room Air 05/05/23 10:44 BMI result Body Mass Index 26.2 Tobacco/Smoking Status: Tobacco use Status Tobacco use date assessed 05/05/23 05/05/23 10:49 Patient Tobacco Use Status Current everyday Tobacco 05/05/23 10:49 Tobacco use type Cigarette 05/05/23 10:49 e-Cigarette/Vaping Use Never Used 05/05/23 10:49 PHQ-9: PHQ-9 Score PHQ-9: Total score 0 05/05/23 11:05 Depression Screening Interpretation: Negative Thrive Assessment: Date of Thrive Assessment Date Thrive assessed 05/05/23 05/05/23 10:49 Currently or been in a relationship where the following occur: no concerns reported Const General: no acute distress and alert [facility] Ears: TM's normal bilaterally and EAC's normal Throat: Yes posterior oropharynx normal and Yes tonsils normal (no TP congestion) Neck Neck: Yes no lymphadenopathy and Yes supple Thyroid: Thyroid normal Resp Auscultation: clear to auscultation bilaterally, no rales and no wheezes Cardio Rate: regular rate Rhythm: regular rhythm Heart sounds: no murmurs GI Palpation (GI): Soft to palpation and nontender Auscultation: normal bowel sounds General: Yes no CVA tenderness Back/Spine/Pelvis Back: no CVA tenderness Thoracic/Lumbar Spine: No lumbar spinal tenderness Skin Rashes: no rashes Extrem General: Yes no clubbing, cyanosis or edema Assessment and Plan Assessment & Plan (1) Pure hypercholesterolemia: Code(s): E78.00 - Pure hypercholesterolemia, unspecified Plan: Patient was not able to get his labs done prior to his appt today but states that he will go to the lab right after his visit today and get them done [facility] Reinforced low cholesterol diet Will recheck his labs and fasting lipids again in 6 months for follow up (2) Impaired fasting glucose: Code(s): R73.01 - Impaired fasting glucose Plan: His FBS was elevated at 111 mg/dl on his previous lab - will recheck this [place] for follow up; will also check his HgbA1c for further evaluation Reinforced low calorie diet (3) Vitamin D deficiency: Code(s): E55.9 - Vitamin D deficiency, unspecified Plan: Continue Vitamin D3 2000 units QD (4) Chest discomfort: Code(s): R07.89 - Other chest pain Plan: Chest x-rays done last year came out normal Stress testing done last year did not show any EKG changes although patient could not complete the test due to increasing fatigue and SOB He was sent for PFTs to complete his evaluation as patient continues to complain of frequent exertional chest discomfort but he never got this done - respiratory was apparently trying to contact him but he could not be reaches as his phone number on record was lidted incorrectly Will have office verify and list down his correct contact info and we can hopefully get his PFTs scheduled and done - PFTs reordered (5) Smoker: Code(s): F17.200 - Nicotine dependence, unspecified, uncomplicated Plan: Counseled again on smoking cessation (6) Overweight (BMI 25.0-29.9): Code(s): E66.3 - Overweight Plan: Reinforced diet/exercise as tolerated/lose weight Plan To return in 6 months for his next annual physical examination Orders: Orders Comprehensive [place]. Panel Fast 6 Months E78.00 - Pure hypercholesterolemia, unspecified, Z00.00 - Encounter for general adult medical examination without abnormal findings UA CC w/rflx Micro + Cult 6 Months R30.0 - Dysuria, Z00.00 - Encounter for general adult medical examination without abnormal findings Prostate Specific Antigen Scr 6 Months Z00.00 - Encounter for general adult medical examination without abnormal findings Hemoglobin A1c 6 Months R73.01 - Impaired fasting glucose PFT pulmonary function test Today F17.200 - Nicotine dependence, unspecified, uncomplicated, R06.00 - Dyspnea, unspecified, R07.89 - Other chest pain Complete Blood Count Auto Diff 6 Months D64.9 - Anemia, unspecified, Z00.00 - Encounter for general adult medical examination without abnormal findings Lipid Panel 6 Months E78.00 - Pure hypercholesterolemia, unspecified, Z00.00 - Encounter for general adult medical examination without abnormal findings TSH reflex Free T4 6 Months E78.00 - Pure hypercholesterolemia, unspecified, Z00.00 - Encounter for general adult medical examination without abnormal findings Vitamin D 25-OH Total 6 Months E55.9 - Vitamin D deficiency, unspecified, Z00.00 - Encounter for general adult medical examination without abnormal findings Coding Level of Care Code Est Pt Level 4 (03834) Diagnoses Pure hypercholesterolemia E78.00 Impaired fasting glucose R73.01 Vitamin D deficiency E55.9 Chest discomfort R07.89 Smoker F17.200 Overweight (BMI 25.0-29.9) E66.3
== END 2023-05-05 11:21 | disposition home or self-care (01) ==
PROVIDERS: PCP Internal Medicine; Visit Provider Internal Medicine
DX: E78.00 Pure hypercholesterolemia, unspecified (principal); R73.01 Impaired fasting glucose; E55.9 Vitamin D deficiency, unspecified; R07.89 Other chest pain; F17.200 Nicotine dependence, unspecified, uncomplicated; E66.3 Overweight
CPT/HCPCS: 99214

== ENCOUNTER 2023-05-05 11:30 | Outpatient (REF) | payer OTHER, SELFPAY ==
[2023-05-05 11:53] LABS: MANUAL DIFF FLAG NO
[2023-05-05 12:44] LABS: Basophils Percent Auto 0.8 % (0-2); Eosinophils Absolute Auto 0.2 X10*3/uL (0.0-0.4); Eosinophils Percent Auto 4.6 % (0-4); Hematocrit 46.7 % (42.0-52.0); Hemoglobin 14.8 g/dl (14.0-18.0); Imm Gran Abs Auto 0.01 X10*3/uL (0.00-0.03); Imm Gran Pct Auto 0.2 % (0.0-0.4); Lymphocytes Absolute Auto 1.8 X10*3/uL (1.2-4.9); Mean Corpuscular HGB Conc 31.7 g/dl (31.0-36.0); Mean Corpuscular Hemoglobin 26.9 pg (27.0-33.0); Mean Corpuscular Volume 84.9 fL (80.0-98.0); Mean Platelet Volume 9.5 fL (9.4-12.4); Monocytes Absolute Auto 0.5 X10*3/uL (0.1-1.2); Monocytes Percent Auto 9.5 % (2-11); Neutrophils Absolute Auto 2.7 x10*3/uL (2.0-8.3); Neutrophils Percent Auto 50.9 % (45-73); Platelet Count 255 X10*3/uL (160-400); Red Cell Distribution Width 14.6 % (11.0-16.0); White Blood Count 5.3 X10*3/uL (4.8-10.8)
[2023-05-05 12:45] LABS: Estimated Average Glucose 120 mg/dL; Hemoglobin A1c % 5.8 % (<6.0)
[2023-05-05 13:16] LABS: Alanine Aminotransferase 20 U/L (0-40); Albumin Level 4.2 g/dL (3.5-5.0); Alkaline Phosphatase 75 U/L (39-117); Anion Gap 9 (12-20); Aspartate Amino Transferase 16 U/L (5-37); Bilirubin Total 0.6 mg/dL (0.0-1.0); Blood Urea Nitrogen 17 mg/dL (9-16); Calcium 9.1 mg/dL (8.4-10.2); Carbon Dioxide 28 mmol/L (22-29); Chloride 108 mmol/L (96-108); Cholesterol 207 mg/dL (<200); Estimated Glomerular Filt Rate > 60; Glucose Fasting 93 mg/dL (60-99); HDL Cholesterol 46 mg/dL (>40); LDL Cholesterol Calculated 145 mg/dL (<100); Sodium 141 mmol/L (135-145); Total Protein 6.8 g/dL (6.5-8.0); Triglycerides 81 mg/dL (<150)
[2023-05-05 13:33] LABS: TSH reflex Free T4 0.98 uIU/mL (0.32-4.0); Vitamin D 25-OH Total 29.9 ng/mL (>30)
[2023-05-05 13:36] LABS: Prostate Specific Antigen Scr 0.64 ng/mL (<0.05-4.0)
[2023-05-05 15:36] LABS: Appearance Urine Clear; Color Urine Yellow; Glucose Urine UA Negative (Negative); Leukocyte Esterase Urine Negative (Negative); Nitrite Urine Negative (Negative); Specific Gravity - Urine 1.025 (1.005-1.025); Urine Blood Negative (Negative); Urine Ketones Negative (Negative); Urine Protein Negative (Neg-Trace)
== END 2023-05-05 11:31 | disposition home or self-care (01) ==
LOC: HO.LAB 11:30
PROVIDERS: PCP Internal Medicine; Visit Provider Internal Medicine
DX: Z00.00 Encounter for general adult medical examination without abnormal findings (principal); Z12.5 Encounter for screening for malignant neoplasm of prostate; E78.00 Pure hypercholesterolemia, unspecified; F17.200 Nicotine dependence, unspecified, uncomplicated; R30.0 Dysuria; R73.01 Impaired fasting glucose; E55.9 Vitamin D deficiency, unspecified
CPT/HCPCS: 36415; 80053; 80061; 81003; 82306; 83036; 84153; 84443; 85025

== ENCOUNTER 2023-11-03 09:57 | Outpatient (AMB) | payer OTHER, SELFPAY ==
--- NOTE | 2023-11-03 10:05 | MHC.PC.OV ---
Vital Signs 11/03/23 10:07 Height 5 ft 7 in Weight 165 lb 6 oz BMI 25.9 BP 100/68 Blood Pressure Location Lt brachial Position Sitting Pulse 74 Pulse Source Pulse Oximeter Pulse Oximetry (%) 95 Oxygen Delivery Method Room Air Intake Visit Reasons: pe Intake Note: Patient is here today for a physical. 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 Required: No Delinquent Tax Collector Assistant: Not Required per policy Accompanied by: Self / Same As Patient Allergies No Known Allergies Allergy (Verified 11/03/23 11:16) Medication List - Last Reconciled 11/03/23 by Devon Mendoza MD cholecalciferol (vitamin D3) 50 mcg PO DAILY 90 days mometasone 0.1% 1 appl topical DAILY PRN Tobacco use date assessed: 11/03/23 Dental Screening Dental Screen Date: 05/05/23 HPI pe HPI Details Patient comes in today for his annual physical examination States that he feels okay He denies any headaches or dizziness Denies any SOB or chest pains although he still has occasional chest discomfort, mostly when he feels tired from working all day He had a treadmill stress test done last year (06/2022) at [facility] that was equivocal as he reached only 73% of MPHR due to SOB and fatigue; cardiology recommended pharmacologic stress testing if his chest symptoms persist No nausea/vomiting, no abdominal pain No change in bowel habits noted He denies any acute urinary symptoms He was not able to get his follow up labs done yet - states that he can go and get them done today as he has not yet eaten anything this morning Also needs his Vitamin D3 Rx refilled if he is to continue on it - has been out of Rx for a few months now He will be due for his next screening colonoscopy in 2025 [facility] Medical History (Updated 11/03/23 @ 11:51 by Devon Mendoza MD) Pure hypercholesterolemia Impaired fasting glucose Vitamin D deficiency Overweight (BMI 25.0-29.9) Smoker Chest discomfort Surgical History Hx of colonoscopy (~11/15/20) Family History Father Heart disease Other No family history of colorectal cancer Social History Household Members Other:: no children Housing: House Alcohol intake: never Patient Tobacco Use Status: Current everyday Tobacco user Tobacco use type: Cigarette Cigarette Packs Per Day: 1 Cigarettes Per Day: 20 e-Cigarette/Vaping Use: Never Used Second Hand Smoke Exposure: Yes service: No 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 Lucio Do, Stefanie Liu, Nick Willingham and colleagues, with an educational renetta from [employer] Review of Systems Const Denies chills, Denies fatigue, Denies fever(s), Denies headache(s), Denies malaise and Denies weakness Eyes Denies blurry vision, Denies change in vision, Denies irritation and Denies itchy eyes ENT Denies dysphagia, Denies dizziness, Denies otalgia, Denies headache(s), Denies nasal congestion, Denies neck pain, Denies odynophagia and Denies sore throat Card Denies chest pain (but (+) chest discomfort at times gene when he feels fatigued), Denies rapid heart rate, Denies irregular heart rhythm, Denies palpitations and Denies dyspnea Resp Denies chest congestion, Denies cough, Denies dyspnea and Denies wheezing GI Denies abdominal pain, Denies bloating, Denies constipation, Denies dysphagia, Denies heartburn, Denies diarrhea, Denies nausea, Denies odynophagia and Denies vomiting Denies hematuria, Denies difficulty urinating, Denies dysuria, Denies urinary frequency and Denies urinary urgency Musc Denies back pain, Denies arthralgias, Denies joint swelling, Denies muscle weakness and Denies neck pain Skin/Breast Denies change in pigmentation, Denies lesions, Denies rash and Denies unusual bruising Neuro Denies dizziness, Denies headache(s), Denies paresthesias and Denies weakness Endo Denies fatigue and Denies palpitations Aller/Immun Denies itchy eyes and Denies wheezing Physical exam (Primary Care) Vital Signs: Last Vital Signs Pulse 74 11/03/23 10:07 BP 100/68 11/03/23 10:07 Pulse Ox 95 11/03/23 10:07 Oxygen Delivery Method Room Air 11/03/23 10:07 BMI result Body Mass Index 25.9 Tobacco/Smoking Status: Tobacco use Status Tobacco use date assessed 11/03/23 11/03/23 10:10 Patient Tobacco Use Status Current everyday Tobacco 11/03/23 10:05 Tobacco use type Cigarette 11/03/23 10:05 e-Cigarette/Vaping Use Never Used 11/03/23 10:05 Thrive Assessment: Date of Thrive Assessment Date Thrive assessed 05/05/23 11/03/23 10:05 Const General: no acute distress, alert and awake Orientation/consciousness: patient oriented x3 HENMT Head: Yes normocephalic and Yes atraumatic Ears: external ears normal, TM's normal bilaterally and EAC's normal General nose exam: No nasal discharge present Face and sinus: Yes normal facial exam and Yes sinuses nontender Teeth and gingiva: dentition normal Throat: Yes posterior oropharynx normal and Yes tonsils normal (no TP congestion) Eyes Eyelids: Yes eyelids normal Conjunctivae: conjunctivae normal Pupils: Equal, round and reactive pupils present EOM: EOMs intact bilaterally Neck Neck: Yes no lymphadenopathy and Yes supple Thyroid: Thyroid normal Resp Auscultation: clear to auscultation bilaterally, no rales and no wheezes Cardio Rate: regular rate Rhythm: regular rhythm Heart sounds: no murmurs GI Palpation (GI): Soft to palpation, nontender and No hepatosplenomegaly present Auscultation: normal bowel sounds General: Yes no CVA tenderness Back/Spine/Pelvis Back: no CVA tenderness Thoracic/Lumbar Spine: thoracic and lumbar spine normal to inspection Skin Lesions: no lesions Rashes: no rashes Neuro General: patient oriented x3, moves all extremities, no focal motor deficits and CN's II-XI intact bilaterally Cranial nerves: Yes Equal, round and reactive pupils present Cognition (Neuro): normal cognition Gait exam (Neuro): Normal gait present Extrem General: Yes no clubbing, cyanosis or edema Assessment and Plan Assessment & Plan (1) Annual physical exam: Code(s): Z00.00 - Encounter for general adult medical examination without abnormal findings Plan: Check labs - advised patient that his labs were already ordered previously and he can just go and get them done POORNIMA He is up-to-date with his colon cancer screening - is not due for repeat colonoscopy until 2025 (2) Chest discomfort: Code(s): R07.89 - Other chest pain Plan: Treadmill stress testing last year was equivocal as he could not complete the exam due to SOB and fatigue As he continues to c/o similar chest symptoms (discomfort/pressure) especially with increased fatigue (he also has high cholesterol and is a smoker), will send him for pharmacologic nuclear stress testing for further evaluation (3) Pure hypercholesterolemia: Code(s): E78.00 - Pure hypercholesterolemia, unspecified Plan: Reinforced low cholesterol diet Have advised patient that his cholesterol levels (especially his LDL cholesterol) were still elevated when they were last checked in April 2023 although they have improved from last year Will have him recheck his labs and fasting lipids POORNIMA Discussed again consideration of starting him on Rx for cholesterol if his numbers are still elevated on his current labs and especially if his stress testing comes back abnormal (4) Impaired fasting glucose: Code(s): R73.01 - Impaired fasting glucose Plan: He is advised that his fasting blood sugar was normal at 93 mg/dl when last checked in April 2023 His HgbA1c was also normal at 5.8% Reinforced low calorie.low carb diet (5) Vitamin D deficiency: Code(s): E55.9 - Vitamin D deficiency, unspecified Plan: Continue Vitamin D3 2000 units QD - Rx refilled (6) Smoker: Code(s): F17.200 - Nicotine dependence, unspecified, uncomplicated Plan: Counseled again on complete smoking cessation (7) Overweight (BMI 25.0-29.9): Code(s): E66.3 - Overweight Plan: Reinforced diet/exercise as tolerated/lose weight Plan Follow up in 6 months Orders: Orders CA lexiscan stress w kathe Today E78.00 - Pure hypercholesterolemia, unspecified, R07.89 - Other chest pain NM cardiolite stress test Today E78.00 - Pure hypercholesterolemia, unspecified, R07.89 - Other chest pain Comprehensive [place]. Panel Fast 6 Months E78.00 - Pure hypercholesterolemia, unspecified Lipid Panel 6 Months E78.00 - Pure hypercholesterolemia, unspecified Medications: Refilled cholecalciferol (vitamin D3) 50 mcg PO DAILY 90 days 90 caps 3RF E55.9 - Vitamin D deficiency, unspecified Coding Level of Care Code Est Pt Prev Care 40-64y(33266) Diagnoses Annual physical exam Z00.00 Chest discomfort R07.89 Pure hypercholesterolemia E78.00 Impaired fasting glucose R73.01 Vitamin D deficiency E55.9 Smoker F17.200 Overweight (BMI 25.0-29.9) E66.3
[2023-11-03 10:07] VITALS: BP 100/68; PULSE 74; O2SAT 95; BMI 25.9
== END 2023-11-03 11:25 | disposition home or self-care (01) ==
PROVIDERS: PCP Internal Medicine; Visit Provider Internal Medicine
DX: Z00.00 Encounter for general adult medical examination without abnormal findings (principal); R07.89 Other chest pain; E78.00 Pure hypercholesterolemia, unspecified; R73.01 Impaired fasting glucose; E55.9 Vitamin D deficiency, unspecified; F17.200 Nicotine dependence, unspecified, uncomplicated; E66.3 Overweight
CPT/HCPCS: 99396

== ENCOUNTER 2023-11-03 11:34 | Outpatient (REF) | payer OTHER, SELFPAY ==
[2023-11-03 12:36] LABS: Appearance Urine Clear; Color Urine Yellow; Glucose Urine UA Negative (Negative); Leukocyte Esterase Urine Negative (Negative); Nitrite Urine Negative (Negative); Specific Gravity - Urine 1.025 (1.005-1.025); Urine Blood Negative (Negative); Urine Ketones Negative (Negative); Urine Protein Negative (Neg-Trace)
[2023-11-03 12:46] LABS: Basophils Percent Auto 0.7 % (0-2); Eosinophils Absolute Auto 0.2 X10*3/uL (0.0-0.4); Eosinophils Percent Auto 4.1 % (0-4); Hematocrit 48.2 % (42.0-52.0); Hemoglobin 15.2 g/dl (14.0-18.0); Imm Gran Abs Auto 0.01 X10*3/uL (0.00-0.03); Imm Gran Pct Auto 0.2 % (0.0-0.4); Lymphocytes Percent Auto 36.8 % (20-40); MANUAL DIFF FLAG SCAN; Mean Corpuscular HGB Conc 31.5 g/dl (31.0-36.0); Mean Corpuscular Hemoglobin 26.7 pg (27.0-33.0); Mean Corpuscular Volume 84.7 fL (80.0-98.0); Monocytes Absolute Auto 0.4 X10*3/uL (0.1-1.2); Monocytes Percent Auto 7.3 % (2-11); Neutrophils Absolute Auto 2.7 x10*3/uL (2.0-8.3); Neutrophils Percent Auto 50.9 % (45-73); PLT CLUMP 1; Red Blood Count 5.69 X10*6/uL (4.60-5.80); Red Cell Distribution Width 14.9 % (11.0-16.0); SCAN SMEAR FLAG 1
[2023-11-03 12:50] LABS: Estimated Average Glucose 120 mg/dL; Hemoglobin A1c % 5.8 % (<6.0)
[2023-11-03 13:23] LABS: White Blood Count 5.4 X10*3/uL (4.8-10.8)
[2023-11-03 13:26] LABS: Alanine Aminotransferase 20 U/L (0-40); Albumin Level 4.4 g/dL (3.5-5.0); Alkaline Phosphatase 74 U/L (39-117); Anion Gap 15 (12-20); Aspartate Amino Transferase 19 U/L (5-37); Bilirubin Total 0.6 mg/dL (0.0-1.0); Blood Urea Nitrogen 14 mg/dL (9-16); Calcium 9.5 mg/dL (8.4-10.2); Carbon Dioxide 22 mmol/L (22-29); Chloride 109 mmol/L (96-108); Cholesterol 202 mg/dL (<200); Estimated Glomerular Filt Rate > 60; Glucose Fasting 88 mg/dL (60-99); HDL Cholesterol 47 mg/dL (>40); LDL Cholesterol Calculated 138 mg/dL (<100); Potassium 3.8 mmol/L (3.3-5.1); Sodium 142 mmol/L (135-145); Triglycerides 87 mg/dL (<150)
[2023-11-03 13:38] LABS: Prostate Specific Antigen Scr 0.52 ng/mL (<0.05-4.0)
[2023-11-03 13:42] LABS: TSH reflex Free T4 0.79 uIU/mL (0.32-4.0); Vitamin D 25-OH Total 34.7 ng/mL (>30)
[2023-11-03 14:26] LABS: SLIDE REVIEW VERIFIED
== END 2023-11-03 11:35 | disposition home or self-care (01) ==
LOC: HO.LAB 11:34
PROVIDERS: PCP Internal Medicine; Visit Provider Internal Medicine
DX: Z00.00 Encounter for general adult medical examination without abnormal findings (principal); E78.00 Pure hypercholesterolemia, unspecified; R30.0 Dysuria; R73.01 Impaired fasting glucose; D64.9 Anemia, unspecified; E55.9 Vitamin D deficiency, unspecified
CPT/HCPCS: 36415; 80053; 80061; 81003; 82306; 83036; 84153; 84443; 85025

== ENCOUNTER → 2024-01-05 09:15 | Outpatient (REF) | payer OTHER, SELFPAY ==
--- NOTE | ~2024-01-05 | NM_ITS ---
Lexiscan Myocardial perfusion study Indication: Chest pain to evaluate for myocardial ischemia Technique: The patient was brought in for a Lexiscan perfusion study on 01/05/2024 and was injected 0.4 mg of Lexiscan intravenously. Within a minute of this injection to 30 mCi of sestamibi was given intravenously. Images were obtained using the SPECT gamma camera interlaced with the gating device. Images were obtained in supine position. Resting perfusion study was performed on 01/12/2024. Patient was administered 30 mCi of sestamibi intravenously at rest. Images were then obtained in supine position. Images obtained without without CT attenuation. Total DLP 79 mGy-cm. Images were processed with the software and compared side to side in short axis, horizontal long axis and vertical long axis views. Findings: Both stress and rest perfusion study were somewhat suboptimal due to intense subdiaphragmatic uptake interfering with the distal inferolateral wall of the LV myocardium, albuterol may intact uptake in the myocardium. The stress perfusion study showed nonattenuated images show mildly reduced uptake in the inferoseptal and, mildly reduced uptake in the mid and apical inferior as well as moderately reduced uptake in the basal inferior wall of the LV myocardium. Remainder of the LV myocardium is normally perfused. Attenuated corrected study images are suboptimal. The gated study shows normal LV systolic function with calculated LVEF of 58%. LV cavity is mildly dilated in size. The gated study shows normal systolic wall thickening and contraction of segments. Resting study shows nontender images show improved uptake in the inferoseptal and septum as well as the inferior wall of the LV myocardium.. Gating at rest reveals normal systolic wall motion with ejection fraction at 62%. The findings are consistent with mild intensity reversible defect of the inferoseptal and septal suggestive of ischemia in RCA territory.. NM/NM cardiolite stress test Impression: 1. Myocardial perfusion imaging study shows mild intensity ostia territory ischemia 2. Gated LVEF is 58% 3. Transient ischemic dilatation not present Nondiagnostic changes on EKG. Electronically signed by: Jose Rothman MD 01/12/2024 12:32 PM EDT
--- NOTE | 2024-01-05 09:18 | CA_ITS ---
Acquisition Time: 2024-01-05 09:33:47 Total Exercise Time: 00:02:00 Test Indications: CP Medications: SEE H Protocol: LEXISCAN Max HR: 092 BPM 54% of Pred: 168 BPM Max BP: 120/064 mmHG Max Work Load: 1.0 METS Pharmacological stress test with lexiscan injection while sitting and kicking his legs, with baseline 4/10 chest tightness at baseline, with 6-7/10 chest tightness, without SOB, with isolated PVCs, with normotensve resposne to injection, with nindiagnoistic EKGs. Aminophylline 75mg IVP given to reverse Lexiscan. Chest pains to baseline.. Nuclear images pending. Test reviewed with Dr. Davial. Referred By: Devon Mendoza Overread By: Gauri Bennett
== END ==
LOC: HO.CARD 09:15
PROVIDERS: PCP Internal Medicine; Visit Provider Internal Medicine
DX: R07.89 Other chest pain (principal); E78.00 Pure hypercholesterolemia, unspecified
CPT/HCPCS: 78452; 93017; A9500; J0280; J2785

== ENCOUNTER → 2024-01-05 09:18 | Outpatient (BNV) | payer OTHER, SELFPAY | PROVIDERS: PCP Internal Medicine; Visit Provider Nurse Practitioner | DX: I25.5 Ischemic cardiomyopathy (principal) | CPT/HCPCS: 78452; 93016; 93018 ==

== ENCOUNTER 2024-02-03 08:19 | Outpatient (REF) | payer OTHER, SELFPAY ==
--- NOTE | 2020-02-03 09:08 | PFT_ITS ---
Flows: FEV1: 84 % of predicted at 2.53 L FVC: 99 % of predicted at 3.63 L FEV1/FVC: 70 % Bronchodilator response: Bronchodilator testing not performed Volumes: Total lung capacity: 89 % of predicted at 5.44 L Residual volume: 109 % of predicted at 1.79 L Slow vital capacity: 81 % of predicted at 3.65 L Expiratory reserve volume: 92 % of predicted at 1.01 L Diffusion capacity: Normal Impression: Mild obstructive ventilatory defect. Bronchodilator testing was not performed. MTDD
== END 2024-02-03 08:20 | disposition home or self-care (01) ==
LOC: HO.RESP 08:19
PROVIDERS: PCP Internal Medicine; Visit Provider Internal Medicine
DX: R07.89 Other chest pain (principal); R06.00 Dyspnea, unspecified; F17.200 Nicotine dependence, unspecified, uncomplicated
CPT/HCPCS: 94010; 94640; 94727; 94729

== ENCOUNTER 2024-04-19 11:26 | Outpatient (AMB) | payer OTHER, SELFPAY ==
[2024-04-19 11:32] VITALS: BP 126/84; PULSE 72; O2SAT 97; BMI 26.3
--- NOTE | 2024-04-19 11:32 | MHC.PC.OV ---
Vital Signs 04/19/24 11:32 Height 5 ft 7 in Weight 168 lb 4 oz BMI 26.3 BP 126/84 Blood Pressure Location Lt brachial Position Sitting Pulse 72 Pulse Source Pulse Oximeter Pulse Oximetry (%) 97 Oxygen Delivery Method Room Air Intake Visit Reasons: hyperlipidemia, chest discomfort, vitamin D def Director Retirement Required: No Accompanied by: Self / Same As Patient Allergies No Known Allergies Allergy (Verified 04/19/24 12:08) Medication List - Last Reconciled 04/19/24 by Devon Mendoza MD cholecalciferol (vitamin D3) 50 mcg PO DAILY 90 days mometasone 0.1% 1 appl topical DAILY PRN Tobacco use date assessed: 04/19/24 Dental Screening Dental Screen Date: 04/19/24 Did you have a dental visit in the last 12 months?: No Did you have a dental problem in the last 6 months where you did not have access to dental care?: No Was dental information given to patient?: No HPI hyperlipidemia, chest discomfort, vitamin D def HPI Details Patient comes in today for his follow-up visit States that he feels okay He denies any headaches or dizziness Denies any chest pains but he continues to experience occasional chest discomfort and pressure, especially with exertion Also relates (+) SOB with exertion at times He had a treadmill stress test done at [facility] [place] [facility] back in 06/2022 that was equivocal as he reached only 73% of MPHR due to SOB and fatigue; cardiology recommended pharmacologic stress testing if his chest symptoms persist He eventually had a myocardial perfusion study done in 12/2023 that revealed (+) mild intensity ostia territory ischemia No nausea/vomiting, no abdominal pain No change in bowel habits noted He would also like to know how he did on his labs back in October 2023 after he was here for his annual physical then [facility] Medical History Pure hypercholesterolemia Impaired fasting glucose Vitamin D deficiency Overweight (BMI 25.0-29.9) Smoker Chest discomfort Surgical History Hx of colonoscopy (~11/15/20) Family History Father Heart disease Other No family history of colorectal cancer Social History Household Members Other:: no children Housing: House Alcohol intake: never Patient Tobacco Use Status: Current everyday Tobacco user Tobacco use type: Cigarette Cigarette Packs Per Day: 1 Cigarettes Per Day: 20 e-Cigarette/Vaping Use: Never Used Second Hand Smoke Exposure: Yes service: No 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 1. Little interest or pleasure in doing things: not at all 2. Feeling down, depressed, or hopeless: not at all 3. Trouble falling or staying asleep, or sleeping too much: not at all 4. Feeling tired or having little energy: not at all 5. Poor appetite or overeating: not at all 6. Feeling bad about yourself - or that you are a failure or have let yourself or your family down: not at all 7. Trouble concentrating on things, such as reading the newspaper or watching television: not at all 8. Moving or speaking so slowly that other people could have noticed. Or the opposite - being so fidgety or restless that you have been moving around a lot more than usual: not at all 9. Thoughts that you would be better off or of hurting yourself in some way: not at all Total score: 0 Depression Screening Interpretation: Negative Depression Screening Done: Yes 32227 - PHQ-9 Billing: Yes Source: Developed by Drs. Lucio Do, Stefanie Liu, Nick Willingham and colleagues, with an educational renetta from [employer]. Thrive Questionnaire Date Thrive assessed: 04/19/24 I am a: Patient What is your living situation today?: I have a steady place to live Within the past 12 months, did the food you bought not last and you didn't have the money to get more?: Never true Within the past 12 months, did you worry whether your food would run out before you got money to buy more?: Never true Do you have trouble paying for medicines?: No Do you have trouble getting transportation to medical appointments?: No Do you have trouble paying your heating and electricity bill?: No Do you have trouble taking care of your child, family member or friend?: No Do you have trouble with day-to-day activities such as bathing, preparing meals, shopping, managing finances, etc.?: No Are you currently unemployed and looking for a job?: No Are you interested in more education?: No Please select the resources that you would like help with: None Currently or been in a relationship where the following occur: No concerns reported THRIVE Score: 0 AUDIT C Alcohol Use Questionnaire (AUDIT-C) 1. How often do you have a drink containing alcohol?: Never 3. How often do you have six or more drinks on one occasion?: Never Total Score: 0 Score Reviewed/Action Taken: Yes KELY-7 AMB Questionnaire KELY-7 Date KELY - 7 assessed: 04/19/24 Feeling nervous, anxious, or on edge: 0 = Not at all Not being able to stop or control worryin = Not at all Worrying too much about different things: 0 = Not at all Trouble relaxin = Not at all Being so restless that it is hard to sit still: 0 = Not at all Becoming easily annoyed or irritable: 0 = Not at all Feeling afraid as if something awful might happen: 0 = Not at all Total KELY-7 score (0-4 normal; 5-9 mild; 10-14 moderate; 15-21 severe): 0 Source: Developed by Drs. Lucio Do, Stefanie Liu, Nick Willingham and colleagues, with an educational renetta from [employer]. Review of Systems Const Denies chills, Denies fatigue, Denies fever(s) and Denies headache(s) ENT Denies dysphagia, Denies dizziness, Denies otalgia, Denies headache(s), Denies neck pain, Denies odynophagia and Denies sore throat Card Denies chest pain (but (+) chest discomfort at times gene when he feels fatigued), Denies rapid heart rate, Denies irregular heart rhythm, Denies palpitations and Reports dyspnea on exertion (at times) Resp Denies chest congestion, Denies cough and Reports dyspnea on exertion (at times) GI Denies abdominal pain, Denies constipation, Denies dysphagia, Denies heartburn, Denies diarrhea, Denies nausea, Denies odynophagia and Denies vomiting Denies difficulty urinating, Denies dysuria and Denies urinary frequency Musc Denies back pain, Denies arthralgias and Denies neck pain Skin/Breast Denies rash Neuro Denies dizziness, Denies headache(s) and Denies paresthesias Endo Denies fatigue and Denies palpitations Physical exam (Primary Care) Vital Signs: Last Vital Signs Pulse 72 04/19/24 11:32 BP 126/84 04/19/24 11:32 Pulse Ox 97 04/19/24 11:32 Oxygen Delivery Method Room Air 04/19/24 11:32 BMI result Body Mass Index 26.3 Tobacco/Smoking Status: Tobacco use Status Tobacco use date assessed 04/19/24 04/19/24 11:35 Patient Tobacco Use Status Current everyday Tobacco 04/19/24 11:35 Tobacco use type Cigarette 04/19/24 11:35 e-Cigarette/Vaping Use Never Used 04/19/24 11:35 PHQ-9: PHQ-9 Score PHQ-9: Total score 0 04/19/24 12:11 Depression Screening Interpretation: Negative Thrive Assessment: Date of Thrive Assessment Date Thrive assessed 04/19/24 04/19/24 11:35 Currently or been in a relationship where the following occur: No concerns reported Const General: no acute distress and alert HENMT Ears: TM's normal bilaterally and EAC's normal Throat: Yes posterior oropharynx normal and Yes tonsils normal (no TP congestion) Neck Neck: Yes supple and No lymphadenopathy Thyroid: Thyroid normal Resp Auscultation: clear to auscultation bilaterally, no rales and no wheezes Cardio Rate: regular rate Rhythm: regular rhythm Heart sounds: no murmurs GI Palpation (GI): Soft to palpation and nontender Auscultation: normal bowel sounds General: Yes no CVA tenderness Back/Spine/Pelvis Back: no CVA tenderness Thoracic/Lumbar Spine: No lumbar spinal tenderness Skin Rashes: no rashes Extrem General: Yes no clubbing, cyanosis or edema Results Reviewed Results Reviewed: Laboratory Tests 11/03/23 11/03/23 11:41 12:04 WBC 5.4 Hgb 15.2 Hct 48.2 Sodium 142 Potassium 3.8 Creatinine 0.73 Estimated GFR > 60 Fasting Glucose 88 Hemoglobin A1c % 5.8 Calcium 9.5 AST 19 ALT 20 Triglycerides 87 Cholesterol 202 H LDL Cholesterol, Calc 138 H HDL Cholesterol 47 PSA Screen 0.52 25-OH Vitamin D Total 34.7 TSH 0.79 Ur Specific [place] 1.025 Urine Protein Negative Urine Glucose (UA) Negative Urine Blood Negative Urine Nitrite Negative Ur Leukocyte Esterase Negative Coding Level of Care Code Est Pt Level 4 (21424) Diagnoses Chest discomfort R07.89 Exertional dyspnea R06.09 Pure hypercholesterolemia E78.00 Impaired fasting glucose R73.01 Vitamin D deficiency E55.9 Smoker F17.200 Overweight (BMI 25.0-29.9) E66.3 Additional Codes PHQ-9 - 38293 - PHQ-9 Billing: Yes ([id number]) Assessment & Plan Assessment & Plan (1) Chest discomfort: Code(s): R07.89 - Other chest pain Category: Medical Plan: Treadmill stress testing done a couple of years ago was equivocal as he could not complete the exam due to SOB and fatigue As he continues to c/o chest discomfort/pressure, especially with increased fatigue (he also has high cholesterol and is a smoker), he was sent for pharmacologic nuclear stress testing for further evaluation Myocardial perfusion study done in 12/2023 that revealed (+) mild intensity ostia territory ischemia. Gated LVEF is 58% Have advised patient that he needs to start working lowering his overall risks, including quitting smoking and lowering his cholesterol levels (2) Exertional dyspnea: Code(s): R06.09 - Other forms of dyspnea Category: Medical Plan: Patient is advised that this is likely due to his smoking He was also noted to have mild dilation of the LV cavity on his recent myocardial perfusion study For completion, we will send him for an echocardiogram for further evaluation (3) Pure hypercholesterolemia: Code(s): E78.00 - Pure hypercholesterolemia, unspecified Category: Medical Plan: Results of his labs done back in October 2023 revealed elevated total and LDL cholesterol levels although these have improved slightly from previous His LDL cholesterol is still at 138 mg/dL Reinforced low cholesterol diet Will go ahead and start him on Atorvastatin 10 mg QD Will have patient recheck his fasting lipids in 3 months for follow up (4) Impaired fasting glucose: Code(s): R73.01 - Impaired fasting glucose Category: Medical Plan: His FBS and HgbA1c were both normal (88 and 5.8%) on his labs done back in October 2023 Reinforced low calorie/low carb diet (5) Vitamin D deficiency: Code(s): E55.9 - Vitamin D deficiency, unspecified Category: Medical Plan: Corrected - continue Vitamin D3 2000 units QD (6) Smoker: Code(s): F17.200 - Nicotine dependence, unspecified, uncomplicated Category: Social Hx Plan: Patient is currently still smoking about a pack a day He is counseled on complete smoking cessation, especially in light of his recent nuclear perfusion study finding of mild instensity ischemia in the RCA territory (7) Overweight (BMI 25.0-29.9): Code(s): E66.3 - Overweight Category: Medical Plan: Reinforced diet/exercise as tolerated/lose weight Plan Follow up in 3 months Orders: Orders Comprehensive [place]. Panel Fast 3 Months E78.00 - Pure hypercholesterolemia, unspecified C Reactive Protein 3 Months R06.09 - Other forms of dyspnea, R07.89 - Other chest pain CA echo transthoracic complete 04/19/24 R06.09 - Other forms of dyspnea Complete Blood Count Auto Diff 3 Months D64.9 - Anemia, unspecified Lipid Panel 3 Months E78.00 - Pure hypercholesterolemia, unspecified Medications: New atorvastatin 10 mg PO BEDTIME 90 days 90 tabs 1RF
== END 2024-04-19 12:14 | disposition home or self-care (01) ==
LOC: HO.HMCH 11:26
PROVIDERS: PCP Internal Medicine; Visit Provider Internal Medicine
DX: R07.89 Other chest pain (principal); R06.09 Other forms of dyspnea; E78.00 Pure hypercholesterolemia, unspecified; R73.01 Impaired fasting glucose; E55.9 Vitamin D deficiency, unspecified; F17.200 Nicotine dependence, unspecified, uncomplicated; E66.3 Overweight

== ENCOUNTER → 2024-04-19 11:26 | Outpatient (BNVA) | payer OTHER, SELFPAY | PROVIDERS: PCP Internal Medicine; Visit Provider Internal Medicine | DX: E78.5 Hyperlipidemia, unspecified (principal); R07.9 Chest pain, unspecified; E55.9 Vitamin D deficiency, unspecified; R07.89 Other chest pain; R06.09 Other forms of dyspnea; E78.00 Pure hypercholesterolemia, unspecified; R73.01 Impaired fasting glucose; F17.200 Nicotine dependence, unspecified, uncomplicated; E66.3 Overweight; D64.9 Anemia, unspecified | CPT/HCPCS: 96127; 99212 ==

== ENCOUNTER → 2024-05-17 11:14 | Outpatient (BNV) | payer OTHER, SELFPAY | PROVIDERS: PCP Internal Medicine; Visit Provider Internal Medicine | DX: R06.00 Dyspnea, unspecified (principal) | CPT/HCPCS: 93306 ==

== ENCOUNTER 2024-08-09 09:18 | Outpatient (REF) | payer OTHER, SELFPAY ==
[2024-08-09 10:38] LABS: MANUAL DIFF FLAG NO
[2024-08-09 11:28] LABS: Basophils Absolute Auto 0.1 X10*3/uL (0.0-0.2); Eosinophils Absolute Auto 0.2 X10*3/uL (0.0-0.4); Eosinophils Percent Auto 3.9 % (0-4); Hematocrit 47.5 % (42.0-52.0); Hemoglobin 15.1 g/dl (14.0-18.0); Imm Gran Abs Auto 0.01 X10*3/uL (0.00-0.03); Imm Gran Pct Auto 0.2 % (0.0-0.4); Lymphocytes Absolute Auto 1.9 X10*3/uL (1.2-4.9); Lymphocytes Percent Auto 36.4 % (20-40); Mean Corpuscular HGB Conc 31.8 g/dl (31.0-36.0); Mean Corpuscular Hemoglobin 26.1 pg (27.0-33.0); Mean Platelet Volume 9.2 fL (9.4-12.4); Monocytes Absolute Auto 0.5 X10*3/uL (0.1-1.2); Monocytes Percent Auto 8.7 % (2-11); Neutrophils Absolute Auto 2.6 x10*3/uL (2.0-8.3); Neutrophils Percent Auto 49.8 % (45-73); Platelet Count 260 X10*3/uL (160-400); Red Blood Count 5.79 X10*6/uL (4.60-5.80); Red Cell Distribution Width 14.8 % (11.0-16.0); White Blood Count 5.2 X10*3/uL (4.8-10.8)
[2024-08-09 12:06] LABS: Alanine Aminotransferase 35 U/L (0-40); Albumin Level 4.6 g/dL (3.5-5.0); Alkaline Phosphatase 84 U/L (39-117); Anion Gap 12 (12-20); Aspartate Amino Transferase 29 U/L (5-37); Bilirubin Total 0.5 mg/dL (0.0-1.0); Blood Urea Nitrogen 17 mg/dL (9-16); C Reactive Protein 0.14 mg/dL (< or = 0.50); Calcium 9.1 mg/dL (8.4-10.2); Carbon Dioxide 27 mmol/L (22-29); Chloride 108 mmol/L (96-108); Cholesterol 168 mg/dL (<200); Estimated Glomerular Filt Rate > 60; Glucose Fasting 92 mg/dL (60-99); HDL Cholesterol 51 mg/dL (>40); LDL Cholesterol Calculated 104 mg/dL (<100); Potassium 4.1 mmol/L (3.3-5.1); Sodium 143 mmol/L (135-145); Total Protein 7.3 g/dL (6.5-8.0); Triglycerides 68 mg/dL (<150)
--- OUTSIDE RECORDS SUMMARY | 2024-08-09 12:08 | XMS_ITS | Clinical Summary ---
Author Organization [facility] Address [address] [place] [address] Care Team Providers Care Database Design Analyst Name Role Phone Dayoerasmo Brodie PATEL Primary Care Provider [phone] Source Comments PLEASE NOTE, if this patient [...] 07/06/2017 Overview (07/06/2017): - CT scan at [facility] in 2017: mild emphysematous changes. Tiny 2 [...] Plan of Treatment Not on file Insurance [place] MEDICAID Care Teams Database Design Analyst Relationship Specialty Start Date End Date Brodie Fraser NP [address] [place] [phone] PCP - General 02/19/18
== END 2024-08-09 09:19 | disposition home or self-care (01) ==
LOC: HO.LAB 09:18
PROVIDERS: PCP Internal Medicine; Visit Provider Internal Medicine
DX: R07.89 Other chest pain (principal); R06.09 Other forms of dyspnea; E78.00 Pure hypercholesterolemia, unspecified; R73.01 Impaired fasting glucose; E55.9 Vitamin D deficiency, unspecified; E66.3 Overweight; Z68.26 Body mass index [BMI] 26.0-26.9, adult; D64.9 Anemia, unspecified; F17.210 Nicotine dependence, cigarettes, uncomplicated
CPT/HCPCS: 36415; 80053; 80061; 85025; 86140; 96127; 99212

== ENCOUNTER 2024-08-09 09:18 | Outpatient (AMB) | payer OTHER, SELFPAY ==
[2024-08-09 09:24] VITALS: BP 110/80; PULSE 74; O2SAT 96; BMI 26.5
--- NOTE | 2024-08-09 09:24 | A.OFFPC_ITS ---
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 Required: No Accompanied by: Self / Same As Patient Allergies No Known Allergies Allergy (Verified 08/09/24 09:56) Medication List - Last Reconciled 08/09/24 by Devon Mendoza MD atorvastatin 10 mg PO BEDTIME 90 days cholecalciferol (vitamin D3) 50 mcg PO DAILY 90 days mometasone 0.1% 1 appl topical DAILY PRN Tobacco use date assessed: 08/09/24 Dental Screening Dental Screen Date: 08/09/24 Did you have a dental visit in the last 12 months?: No Did you have a dental problem in the last 6 months where you did not have access to dental care?: No Was dental information given to patient?: No HPI hyperlipidemia, chest pain, SANZ HPI Details Patient comes in today for his follow up visit States that he feels okay He denies any headaches or dizziness Denies any chest pains, no increased SOB - states that his previous exertional dyspnea and on and off chest discomfort/pressure seem to have improved and he has not been experiencing them often lately No nausea/vomiting, no abdominal pain No change in bowel habits noted He was not able to get his follow up labs done prior to his appointment today [facility] Medical History Pure hypercholesterolemia Impaired fasting glucose Vitamin D deficiency Overweight (BMI 25.0-29.9) Smoker Chest discomfort Surgical History Hx of colonoscopy (~11/15/20) Family History Father Heart disease Other No family history of colorectal cancer Social History Household Members Other:: no children Housing: House Alcohol intake: never Patient Tobacco Use Status: Current everyday Tobacco user Tobacco use type: Cigarette Cigarette Packs Per Day: 1 Cigarettes Per Day: 20 e-Cigarette/Vaping Use: Never Used Second Hand Smoke Exposure: Yes service: No Current occupational status: 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 1. Little interest or pleasure in doing things: not at all 2. Feeling down, depressed, or hopeless: not at all 3. Trouble falling or staying asleep, or sleeping too much: not at all 4. Feeling tired or having little energy: not at all 5. Poor appetite or overeating: not at all 6. Feeling bad about yourself - or that you are a failure or have let yourself or your family down: not at all 7. Trouble concentrating on things, such as reading the newspaper or watching television: not at all 8. Moving or speaking so slowly that other people could have noticed. Or the opposite - being so fidgety or restless that you have been moving around a lot more than usual: not at all 9. Thoughts that you would be better off or of hurting yourself in some way: not at all Total score: 0 Depression Screening Interpretation: Negative Depression Screening Done: Yes 72396 - PHQ-9 Billing: Yes Source: Developed by Drs. Lucio Do, Stefanie Liu, Nick Willingham and colleagues, with an educational renetta from [employer]. Thrive Questionnaire Date Thrive assessed: 08/09/24 I am a: Patient What is your living situation today?: I have a steady place to live Within the past 12 months, did the food you bought not last and you didn't have the money to get more?: Never true Within the past 12 months, did you worry whether your food would run out before you got money to buy more?: Never true Do you have trouble paying for medicines?: No Do you have trouble getting transportation to medical appointments?: No Do you have trouble paying your heating and electricity bill?: No Do you have trouble taking care of your child, family member or friend?: No Do you have trouble with day-to-day activities such as bathing, preparing meals, shopping, managing finances, etc.?: No Are you currently unemployed and looking for a job?: No Are you interested in more education?: No Please select the resources that you would like help with: None Currently or been in a relationship where the following occur: No concerns reported THRIVE Score: 0 AUDIT C Alcohol Use Questionnaire (AUDIT-C) 1. How often do you have a drink containing alcohol?: Never 3. How often do you have six or more drinks on one occasion?: Never Total Score: 0 Score Reviewed/Action Taken: Yes KELY-7 AMB Questionnaire KELY-7 Date KELY - 7 assessed: 08/09/24 Feeling nervous, anxious, or on edge: 0 = Not at all Not being able to stop or control worryin = Not at all Worrying too much about different things: 0 = Not at all Trouble relaxin = Not at all Being so restless that it is hard to sit still: 0 = Not at all Becoming easily annoyed or irritable: 0 = Not at all Feeling afraid as if something awful might happen: 0 = Not at all Total KELY-7 score (0-4 normal; 5-9 mild; 10-14 moderate; 15-21 severe): 0 Source: Developed by Drs. Lucio Do, Stefanie Liu, Nick Willingham and colleagues, with an educational renetta from [employer]. Review of Systems Const Denies chills, Denies fatigue, Denies fever(s) and Denies headache(s) ENT Denies dysphagia, Denies dizziness, Denies otalgia, Denies headache(s), Denies neck pain, Denies odynophagia and Denies sore throat Card Denies chest pain, Denies rapid heart rate, Denies irregular heart rhythm, Denies palpitations and Reports dyspnea on exertion (at times, mostly mild) Resp Denies chest congestion, Denies cough and Reports dyspnea on exertion (at times, mostly mild) GI Denies abdominal pain, Denies constipation, Denies dysphagia, Denies heartburn, Denies diarrhea, Denies nausea, Denies odynophagia and Denies vomiting Denies difficulty urinating, Denies dysuria and Denies urinary frequency Musc Denies back pain, Denies arthralgias and Denies neck pain Skin/Breast Denies rash Neuro Denies dizziness, Denies headache(s) and Denies paresthesias Endo Denies fatigue and Denies palpitations Physical exam (Primary Care) Vital Signs: Last Vital Signs Pulse 74 08/09/24 09:24 BP 110/80 08/09/24 09:24 Pulse Ox 96 08/09/24 09:24 Oxygen Delivery Method Room Air 08/09/24 09:24 BMI result Body Mass Index 26.5 Tobacco/Smoking Status: Tobacco use Status Tobacco use date assessed 08/09/24 08/09/24 09:30 Patient Tobacco Use Status Current everyday Tobacco 08/09/24 09:30 Tobacco use type Cigarette 08/09/24 09:30 e-Cigarette/Vaping Use Never Used 08/09/24 09:30 PHQ-9: PHQ-9 Score PHQ-9: Total score 0 08/09/24 10:51 Depression Screening Interpretation: Negative Thrive Assessment: Date of Thrive Assessment Date Thrive assessed 08/09/24 08/09/24 09:30 Currently or been in a relationship where the following occur: No concerns reported Const General: no acute distress and alert HENMT Ears: TM's normal bilaterally and EAC's normal Throat: Yes posterior oropharynx normal and Yes tonsils normal (no TP congestion) Neck Neck: Yes supple and No lymphadenopathy Thyroid: Thyroid normal Resp Auscultation: clear to auscultation bilaterally, no crackles, no rales, no wheezes and diminished lung sounds (slightly) bilateral Cardio Rate: regular rate Rhythm: regular rhythm Heart sounds: no murmurs GI Palpation (GI): Soft to palpation and nontender Auscultation: normal bowel sounds General: Yes no CVA tenderness Back/Spine/Pelvis Back: no CVA tenderness Thoracic/Lumbar Spine: No lumbar spinal tenderness Skin Rashes: no rashes Extrem General: Yes no clubbing, cyanosis or edema Coding Level of Care Code Est Pt Level 4 (08031) Complex EM visit Add On G2211 Diagnoses Chest discomfort R07.89 Exertional dyspnea R06.09 Pure hypercholesterolemia E78.00 Impaired fasting glucose R73.01 Vitamin D deficiency E55.9 Smoker F17.200 Overweight (BMI 25.0-29.9) E66.3 Additional Codes PHQ-9 - 62270 - PHQ-9 Billing: Yes ([id number]) Assessment & Plan Assessment & Plan (1) Chest discomfort: Code(s): R07.89 - Other chest pain Category: Medical Plan: Patient states that his chest symptoms have improved significantly lately and he is not bothered by these as much as he used to Treadmill stress testing done a couple of years ago was equivocal as he could not complete the exam due to SOB and fatigue He was then sent for pharmacologic nuclear stress testing Myocardial perfusion study done in 12/2023 revealed (+) mild intensity ostia territory ischemia. Gated LVEF is 58% Have advised patient again that he needs to work aggressively on lowering his overall risks, including lowering his cholesterol levels and especially quitting smoking (2) Exertional dyspnea: Code(s): R06.09 - Other forms of dyspnea Category: Medical Plan: Improved somewhat - patient is advised again that this is likely due to his smoking and should improve a lot if he is able to quit smoking completely He was also noted to have mild dilation of the LV cavity on his recent myocardial perfusion study For completion, we sent him for an echocardiogram at his last visit Echo done on 05/17/2024 came out mostly normal, with LVEF at 64% and left ventricular cavity size was normal. Diastolic function was also normal for age although there is a mild dilatation of the ascending aorta measuring 3.6 cm (3) Pure hypercholesterolemia: Code(s): E78.00 - Pure hypercholesterolemia, unspecified Category: Medical Plan: He was not able to get his previously ordered labs done prior to his appointment today and he is instructed to go and get these done POORNIMA to assess his response to his cholesterol Rx, which was started at his last visit Reinforced low cholesterol diet Continue Atorvastatin 10 mg QD Will have patient recheck his fasting lipids and labs again in 4 months for follow up (4) Impaired fasting glucose: Code(s): R73.01 - Impaired fasting glucose Category: Medical Plan: His FBS and HgbA1c were both normal (88 and 5.8%) on his labs done back in October 2023 - will recheck these POORNIMA Reinforced low calorie/low carb diet (5) Vitamin D deficiency: Code(s): E55.9 - Vitamin D deficiency, unspecified Category: Medical Plan: Continue Vitamin D3 2000 units QD (6) Smoker: Code(s): F17.200 - Nicotine dependence, unspecified, uncomplicated Category: Social Hx Plan: Patient is currently still smoking about a pack a day He is counseled again on complete smoking cessation, especially in light of his recent nuclear perfusion study finding of mild instensity ischemia in the RCA territory (7) Overweight (BMI 25.0-29.9): Code(s): E66.3 - Overweight Category: Medical Plan: Reinforced diet/exercise as tolerated/lose weight Plan Follow up in 4 months Orders: Orders Comprehensive [place]. Panel Fast 4 Months E78.00 - Pure hypercholesterolemia, unspecified UA CC w/rflx Micro + Cult 4 Months R30.0 - Dysuria Vitamin D 25-OH Total 4 Months E55.9 - Vitamin D deficiency, unspecified Complete Blood Count Auto Diff 4 Months D64.9 - Anemia, unspecified Lipid Panel 4 Months E78.00 - Pure hypercholesterolemia, unspecified TSH reflex Free T4 4 Months E78.00 - Pure hypercholesterolemia, unspecified
--- OUTSIDE RECORDS SUMMARY | 2024-08-09 10:12 | XMS_ITS | Clinical Summary ---
Author Organization [facility] Address [address] [place] [address] Care Team Providers Care Blindstitch Lapel Padder Name Role Phone Dayoerasmo Brodie PATEL Primary Care Provider [phone] Source Comments PLEASE NOTE, if this patient is a minor, it may be UNLAWFUL to discuss sensitive information that is contained in these records (such as FAMILY PLANNING, MENTAL HEALTH or SUBSTANCE ABUSE) with the minor patient's parent or other person without the patient's specific authorization.[facility] Allergies No known active allergies Medications No known medications Active Problems Problem Noted Date Diagnosed Date Smoking 07/06/2017 Overview (07/06/2017): - CT scan at [facility] in 2017: mild emphysematous changes. Tiny 2 mm nodule in the PING. 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 05/20/2017 Immunizations Immunization Administration Dates Next Due PNEUMOCOCCAL CONJUGATE PCV 13 05/20/2017 Family History Medical History Relation Name Comments Heart Problems Father Hypertension Father Diabetes Mother Relation Name Status Comments Father Alive Mother Alive Social History Tobacco Use Types Packs/Day Years Used Date Smoking Tobacco: Every Day Cigarettes 1 20 Smokeless Tobacco: Current Tobacco Cessation:Counseling Given: Yes Alcohol Use Standard Drinks/Week Comments No 0 (1 standard drink = 0.6 oz pur e alcohol) Social Connections Answer Date Recorded Social Connections and Isolation 0 12/06/2018 Financial Resource Strain Answer Date R ecorded Financial Resource Strain 0 2018 Stress Answer Date Recorded Stress 0 12/06/2018 Physical Activity Answer Date Recorded Physical Activity 0 12/06/2018 Food Insecurity Answer Date Recorded Food 0 12/06/2018 Transportation Needs Answer Date Record ed Transportation 0 12/06/2018 Housing Stability Answer Date Recorded Housing 0 12/06/2018 Safety and Environment Answer Date Armando rded Safety 0 12/06/2018 Utilities Answer Date Recorded Utilities 0 12/06/2018 Employment Answer Date Recorded Employment 0 12/06/2018 Sex and Gender Information Value Date Recorded Sex Assigned at Male 05/20/2017 7:26 AM PST Legal Sex Male 12:16 PM PDT Gender Identity Male 05/20/2017 7:26 AM PST Sexual Orientation Straight 05/20/2017 7: 26 AM PST Last Filed Vital Signs Vital Sign Reading Time Taken Comments Blood Pressure 110/62 05/20/2017 10:26 AM EST Pulse 82 05/20/2017 10:26 AM EST Temperature 36.9 ??C (98.4 ??F) 05/20/2017 10:[address] Respiratory Rate 15 05/20/2017 10:26 AM EST Oxygen Saturation - - Inhaled Oxygen Concentration - - Weight 80.7 kg (178 lb) 05/20/2017 10:26 AM EST Height - - Body Mass Index - - Plan of Treatment Not on file Insurance [place] Care Teams Blindstitch Lapel Padder Relationship Specialty Start Date End Date Brodie Fraser NP [address] [place] [id number] PCP - General 02/19/18
== END 2024-08-09 10:04 | disposition home or self-care (01) ==
LOC: HO.HMCH 09:18
PROVIDERS: PCP Internal Medicine; Visit Provider Internal Medicine
DX: R07.89 Other chest pain (principal); R06.09 Other forms of dyspnea; E78.00 Pure hypercholesterolemia, unspecified; R73.01 Impaired fasting glucose; E55.9 Vitamin D deficiency, unspecified; F17.200 Nicotine dependence, unspecified, uncomplicated; E66.3 Overweight

== ENCOUNTER 2024-11-08 10:16 | Outpatient (AMB) | payer OTHER, SELFPAY ==
[2024-11-08 10:21] VITALS: BP 118/80; PULSE 75; O2SAT 95; BMI 25.9
--- NOTE | 2024-11-08 10:21 | A.OFFPC_ITS ---
Vital Signs 11/08/24 10:21 Height 5 ft 7 in Weight 165 lb 8 oz BMI 25.9 BP 118/80 Blood Pressure Location Lt brachial Position Sitting Pulse 75 Pulse Source Pulse Oximeter Pulse Oximetry (%) 95 Oxygen Delivery Method Room Air Intake Visit Reasons: annual exam Top Screw Required: No Accompanied by: Self / Same As Patient Allergies No Known Allergies Allergy (Verified 12/27/24 09:51) Medication List - Last Reconciled 03/14/25 by Devon Mendoza MD atorvastatin 10 mg PO BEDTIME 90 days cholecalciferol (vitamin D3) 50 mcg PO DAILY 90 days mometasone 0.1% 1 appl topical DAILY PRN Tobacco use date assessed: 11/08/24 Dental Screening Dental Screen Date: 11/08/24 Did you have a dental visit in the last 12 months?: No Did you have a dental problem in the last 6 months where you did not have access to dental care?: No Was dental information given to patient?: No HPI annual exam HPI Details Patient comes in today for his annual physical examination States that he feels okay He denies any headaches or dizziness Denies any chest pains but still reports experiencing some chest pressure/discomfort at times, no increased SOB No nausea/vomiting, no abdominal pain No change in bowel habits noted He denies any acute urinary symptoms Needs a couple of his Rx refilled He was not able to get his follow-up labs done prior to his appointment today - states that he will try to get these done POORNIMA He had his screening colonoscopy last done about 4 years ago in 2020 and will be due for repeat colonoscopy in 5 years (2025) [facility] Medical History Pure hypercholesterolemia Impaired fasting glucose Vitamin D deficiency Overweight (BMI 25.0-29.9) Smoker Chest discomfort Surgical History Hx of colonoscopy (~11/15/20) Family History Father Heart disease Other No family history of colorectal cancer Social History Household Members Other:: no children Housing: House Alcohol intake: never Patient Tobacco Use Status: Current everyday Tobacco user Tobacco use type: Cigarette Cigarette Packs Per Day: 1 Cigarettes Per Day: 20 e-Cigarette/Vaping Use: Never Used Second Hand Smoke Exposure: Yes service: No 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 1. Little interest or pleasure in doing things: not at all 2. Feeling down, depressed, or hopeless: not at all 3. Trouble falling or staying asleep, or sleeping too much: not at all 4. Feeling tired or having little energy: not at all 5. Poor appetite or overeating: not at all 6. Feeling bad about yourself - or that you are a failure or have let yourself or your family down: not at all 7. Trouble concentrating on things, such as reading the newspaper or watching television: not at all 8. Moving or speaking so slowly that other people could have noticed. Or the opposite - being so fidgety or restless that you have been moving around a lot more than usual: not at all 9. Thoughts that you would be better off or of hurting yourself in some way: not at all Total score: 0 Depression Screening Interpretation: Negative Depression Screening Done: Yes 26616 - PHQ-9 Billing: Yes Source: Developed by Drs. Lucio Do, Stefanie Liu, Nick Willingham and colleagues, with an educational renetta from [employer]. Thrive Questionnaire Date Thrive assessed: 11/08/24 I am a: Patient What is your living situation today?: I have a steady place to live Within the past 12 months, did the food you bought not last and you didn't have the money to get more?: Never true Within the past 12 months, did you worry whether your food would run out before you got money to buy more?: Never true Do you have trouble paying for medicines?: No Do you have trouble getting transportation to medical appointments?: No Do you have trouble paying your heating and electricity bill?: No Do you have trouble taking care of your child, family member or friend?: No Do you have trouble with day-to-day activities such as bathing, preparing meals, shopping, managing finances, etc.?: No Are you currently unemployed and looking for a job?: No Are you interested in more education?: No Please select the resources that you would like help with: None Currently or been in a relationship where the following occur: No concerns reported THRIVE Score: 0 AUDIT C Alcohol Use Questionnaire (AUDIT-C) 1. How often do you have a drink containing alcohol?: Never 3. How often do you have six or more drinks on one occasion?: Never Total Score: 0 Score Reviewed/Action Taken: Yes KELY-7 AMB Questionnaire KELY-7 Date KELY - 7 assessed: 11/08/24 Feeling nervous, anxious, or on edge: 0 = Not at all Not being able to stop or control worryin = Not at all Worrying too much about different things: 0 = Not at all Trouble relaxin = Not at all Being so restless that it is hard to sit still: 0 = Not at all Becoming easily annoyed or irritable: 0 = Not at all Feeling afraid as if something awful might happen: 0 = Not at all Total KELY-7 score (0-4 normal; 5-9 mild; 10-14 moderate; 15-21 severe): 0 Source: Developed by Drs. Lucio Do, Stefanie Liu, Nick Willingham and colleagues, with an educational renetta from [employer]. Review of Systems Const Denies chills, Denies fatigue, Denies fever(s), Denies headache(s), Denies malaise and Denies weakness Eyes Denies blurry vision, Denies change in vision, Denies irritation and Denies itchy eyes ENT Denies dysphagia, Denies dizziness, Denies otalgia, Denies headache(s), Denies nasal congestion, Denies neck pain, Denies odynophagia and Denies sore throat Card Denies chest pain (but reports (+) chest pressure/discomfort at times), Denies rapid heart rate, Denies irregular heart rhythm, Denies palpitations and Denies dyspnea Resp Denies chest congestion, Denies cough, Denies dyspnea and Denies wheezing GI Denies abdominal pain, Denies bloating, Denies constipation, Denies dysphagia, Denies heartburn, Denies diarrhea, Denies nausea, Denies odynophagia and Denies vomiting Denies hematuria, Denies difficulty urinating, Denies dysuria, Denies urinary frequency and Denies urinary urgency Musc Denies back pain, Denies arthralgias, Denies joint swelling, Denies muscle weakness and Denies neck pain Skin/Breast Denies change in pigmentation, Denies lesions, Denies rash and Denies unusual bruising Neuro Denies dizziness, Denies headache(s), Denies paresthesias and Denies weakness Endo Denies fatigue and Denies palpitations Aller/Immun Denies itchy eyes and Denies wheezing Physical exam (Primary Care) Vital Signs: Last Vital Signs Pulse 75 11/08/24 10:21 BP 118/80 11/08/24 10:21 Pulse Ox 95 11/08/24 10:21 Oxygen Delivery Method Room Air 11/08/24 10:21 BMI result Body Mass Index 25.9 Tobacco/Smoking Status: Tobacco use Status Tobacco use date assessed 11/08/24 11/08/24 10:29 Patient Tobacco Use Status Current everyday Tobacco 11/08/24 10:29 Tobacco use type Cigarette 11/08/24 10:29 e-Cigarette/Vaping Use Never Used 11/08/24 10:29 PHQ-9: PHQ-9 Score PHQ-9: Total score 0 03/14/25 04:05 Depression Screening Interpretation: Negative Thrive Assessment: Date of Thrive Assessment Date Thrive assessed 11/08/24 11/08/24 10:29 Currently or been in a relationship where the following occur: No concerns reported Const General: no acute distress, alert and awake Orientation/consciousness: patient oriented x3 HENMT Head: Yes normocephalic and Yes atraumatic Ears: external ears normal, TM's normal bilaterally and EAC's normal General nose exam: No nasal discharge present Face and sinus: Yes normal facial exam and Yes sinuses nontender Teeth and gingiva: dentition normal Throat: Yes posterior oropharynx normal and Yes tonsils normal (no TP congestion) Eyes Eyelids: Yes eyelids normal Conjunctivae: conjunctivae normal Pupils: Equal, round and reactive pupils present EOM: EOMs intact bilaterally Neck Neck: Yes no lymphadenopathy and Yes supple Thyroid: Thyroid normal Resp Auscultation: clear to auscultation bilaterally, no rales and no wheezes Cardio Rate: regular rate Rhythm: regular rhythm Heart sounds: no murmurs GI Palpation (GI): Soft to palpation, nontender and No hepatosplenomegaly present Auscultation: normal bowel sounds General: Yes no CVA tenderness Back/Spine/Pelvis Back: no CVA tenderness Thoracic/Lumbar Spine: thoracic and lumbar spine normal to inspection Skin Lesions: no lesions Rashes: no rashes Neuro General: patient oriented x3, moves all extremities, no focal motor deficits and CN's II-XI intact bilaterally Cranial nerves: Yes Equal, round and reactive pupils present Cognition (Neuro): normal cognition Gait exam (Neuro): Normal gait present Extrem General: Yes no clubbing, cyanosis or edema Coding Level of Care Code Est Pt Prev Care 40-64y(12780) Diagnoses Annual physical exam Z00.00 Chest discomfort R07.89 Exertional dyspnea R06.09 Pure hypercholesterolemia E78.00 Impaired fasting glucose R73.01 Vitamin D deficiency E55.9 Smoker F17.200 Overweight (BMI 25.0-29.9) E66.3 Additional Codes PHQ-9 - 95194 - PHQ-9 Billing: Yes ([id number]) Assessment & Plan Assessment & Plan (1) Annual physical exam: Code(s): Z00.00 - Encounter for general adult medical examination without abnormal findings Category: Medical Plan: Have advised patient to go and get his previously ordered follow up labs done POORNIMA He had his screening colonoscopy last done about 4 years ago in 2020 and will be due for repeat colonoscopy in 5 years (2025) (2) Chest discomfort: Code(s): R07.89 - Other chest pain Category: Medical Plan: MOSTLY RESOLVED - patient states that his chest symptoms have improved significantly lately and he is not bothered by these as much as he used to Treadmill stress testing done a couple of years ago was equivocal as he could not complete the exam due to SOB and fatigue He was then sent for pharmacologic nuclear stress testing Myocardial perfusion study done in 12/2023 revealed (+) mild intensity ostia territory ischemia. Gated LVEF is 58% Have advised patient again that he needs to work aggressively on lowering his overall risks, including lowering his cholesterol levels and especially quitting smoking (3) Exertional dyspnea: Code(s): R06.09 - Other forms of dyspnea Category: Medical Plan: IMPROVED somewhat - patient is advised again that this is likely due to his smoking and should improve a lot if he is able to quit smoking completely He was also noted to have mild dilation of the LV cavity on his recent myocardial perfusion study Echo done on 05/17/2024 came out mostly normal, with LVEF at 64% and left vent ricular cavity size was normal. Diastolic function was also normal for age although there is a mild dilatation of the ascending aorta measuring 3.6 cm Will send him for repeat chest x-rays for further evaluation (4) Pure hypercholesterolemia: Code(s): E78.00 - Pure hypercholesterolemia, unspecified Category: Medical Plan: He was not able to get his follow up labs done prior to his visit today Reinforced low cholesterol diet Continue Atorvastatin 10 mg QD Will have patient recheck his fasting lipids and labs again in 4 months for follow up (5) Impaired fasting glucose: Code(s): R73.01 - Impaired fasting glucose Category: Medical Plan: His FBS was slightly elevated at 109 mg/dl on his recent labs; HgbA1c was normal at 5.8% when previously checked in October 2023 Reinforced low calorie/low carb diet (6) Vitamin D deficiency: Code(s): E55.9 - Vitamin D deficiency, unspecified Category: Medical Plan: Continue Vitamin D3 2000 units QD (7) Smoker: Code(s): F17.200 - Nicotine dependence, unspecified, uncomplicated Category: Social Hx Plan: Patient is currently still smoking about a pack a day He is counseled again on complete smoking cessation, especially in light of his recent nuclear perfusion study finding of mild instensity ischemia in the RCA territory Will send him for repeat chest x-rays for further evaluation Will also refer him for lung cancer screening (8) Overweight (BMI 25.0-29.9): Code(s): E66.3 - Overweight Category: Medical Plan: Reinforced diet/exercise as tolerated/lose weight Plan Follow up in 4 months Orders: Orders XR chest 2V 11/15/24 R07.89 - Other chest pain, F17.200 - Nicotine dependence, unspecified, uncomplicated Referrals Thoracic/General Surgery Referral Z12.2 - Encounter for screening for malignant neoplasm of respiratory organs Medications: Refilled cholecalciferol (vitamin D3) 50 mcg PO DAILY 90 caps 3RF 90 days E55.9 - Vitamin D deficiency, unspecified mometasone 0.1% 1 appl topical DAILY PRN 45 grams 0RF rash
--- OUTSIDE RECORDS SUMMARY | 2024-11-08 11:20 | XMS_ITS | Clinical Summary ---
Author Organization [facility] Address [address] [place] [address] Care Team Providers Care Lavatory Attendant Name Role Phone Dayoerasmo Brodie PATEL Primary Care Provider [phone] Source Comments PLEASE NOTE, if this patient [...] 07/06/2017 Overview (07/06/2017): - CT scan at [facility] in 2017: mild emphysematous changes. Tiny 2 [...] 82 05/20/2017 10:26 AM EST Temperature 36.9 C (98.4 F) 05/20/2017 10:26 AM EST Respiratory Rate 15 05/20/2017 10:26 AM EST Oxygen Saturation - - Inhaled Oxygen Concentration - - Weight 80.7 kg (178 lb) 05/20/2017 10:26 AM EST Height - - Body Mass Index - - Plan of Treatment Not on file Insurance [place] MEDICAID Care Teams Lavatory Attendant Relationship Specialty Start Date End Date Brodie Fraser NP [address] [place] [address] PCP - General 02/19/18
== END 2024-11-08 11:06 | disposition home or self-care (01) ==
LOC: HO.HMCH 10:16
PROVIDERS: PCP Internal Medicine; Visit Provider Internal Medicine
DX: Z00.00 Encounter for general adult medical examination without abnormal findings (principal); R07.89 Other chest pain; R06.09 Other forms of dyspnea; E78.00 Pure hypercholesterolemia, unspecified; R73.01 Impaired fasting glucose; E55.9 Vitamin D deficiency, unspecified; F17.200 Nicotine dependence, unspecified, uncomplicated; E66.3 Overweight

== ENCOUNTER → 2024-11-08 10:16 | Outpatient (BNVA) | payer OTHER, SELFPAY | PROVIDERS: PCP Internal Medicine; Visit Provider Internal Medicine | DX: Z00.00 Encounter for general adult medical examination without abnormal findings (principal); R07.89 Other chest pain; R06.09 Other forms of dyspnea; E78.00 Pure hypercholesterolemia, unspecified; R73.01 Impaired fasting glucose; E55.9 Vitamin D deficiency, unspecified; E66.3 Overweight; F17.210 Nicotine dependence, cigarettes, uncomplicated; Z68.25 Body mass index [BMI] 25.0-25.9, adult | CPT/HCPCS: 96127; 99396 ==

== ENCOUNTER 2024-11-15 08:58 | Outpatient (REF) | payer OTHER, SELFPAY ==
--- NOTE | ~2024-11-15 | XR_ITS ---
EXAMINATION: XR CHEST 2 VIEWS HISTORY: R07.89 - Other chest pain COMPARISON: Comparison is made with the prior examination dated 06/24/2022. FINDINGS: PA and lateral views of the chest are submitted. The lungs are expanded and clear. There is no pleural effusion, pneumothorax, or pulmonary vascular congestion. The heart is normal in size. There is degenerative disc disease of the spine. XR/XR chest 2V IMPRESSION: No acute cardiopulmonary abnormality. Electronically signed by: Lucio Villalba MD 11/15/2024 09:32 AM EDT
--- OUTSIDE RECORDS SUMMARY | 2024-11-15 09:23 | XMS_ITS | Clinical Summary ---
Author Organization [facility] Address [address] [place] [address] Care Team Providers Care Combat Systems Operator Name Role Phone Dayoerasmo Brodie PATEL Primary Care Provider [phone] Source Comments PLEASE NOTE, if this patient [...] 07/06/2017 Overview (07/06/2017): - CT scan at [facility] in 2017: mild emphysematous changes. Tiny [...] Plan of Treatment Not on file Insurance [place] MEDICAID Care Teams Combat Systems Operator Relationship Specialty Start Date End Date Brodie Fraser NP [address] [place] [address] PCP - General 02/19/18
== END 2024-11-15 08:59 | disposition home or self-care (01) ==
LOC: HO.XRAY 08:58
PROVIDERS: Visit Provider Internal Medicine
DX: R07.89 Other chest pain (principal); F17.200 Nicotine dependence, unspecified, uncomplicated; Z71.6 Tobacco abuse counseling
CPT/HCPCS: 71046

== ENCOUNTER → 2024-11-15 09:03 | Outpatient (BNV) | payer OTHER, SELFPAY | PROVIDERS: Visit Provider Radiology Diagnostic Radiology | DX: R07.89 Other chest pain (principal) | CPT/HCPCS: 71046 ==

== ENCOUNTER 2024-12-20 08:38 | Outpatient (REF) | payer OTHER, SELFPAY ==
--- OUTSIDE RECORDS SUMMARY | 2024-12-20 09:39 | XMS_ITS | Clinical Summary ---
Author Organization [facility] Address [address] [place] [address] Care Team Providers Care Optics Technical Officer Name Role Phone Dayoerasmo Brodie PATEL Primary Care Provider [phone] Source Comments PLEASE NOTE, if this patient [...] 07/06/2017 Overview (07/06/2017): - CT scan at [facility] in 2017: mild emphysematous changes. Tiny [...] Plan of Treatment Not on file Insurance [place] Care Teams Optics Technical Officer Relationship Specialty Start Date End Date Brodie Fraser NP [address] [place] [address] PCP - General 02/19/18
[2024-12-20 09:48] LABS: Alanine Aminotransferase 33 U/L (0-40); Albumin Level 4.7 g/dL (3.5-5.0); Alkaline Phosphatase 88 U/L (39-117); Anion Gap 13 (12-20); Aspartate Amino Transferase 26 U/L (5-37); Blood Urea Nitrogen 13 mg/dL (9-16); Calcium 8.8 mg/dL (8.4-10.2); Carbon Dioxide 27 mmol/L (22-29); Chloride 108 mmol/L (96-108); Cholesterol 161 mg/dL (<200); Estimated Glomerular Filt Rate > 60; HDL Cholesterol 52 mg/dL (>40); Potassium 4.0 mmol/L (3.3-5.1); Sodium 144 mmol/L (135-145); Total Protein 7.0 g/dL (6.5-8.0); Triglycerides 75 mg/dL (<150)
== END 2024-12-20 08:39 | disposition home or self-care (01) ==
LOC: HO.LAB 08:38
PROVIDERS: PCP Internal Medicine; Visit Provider Internal Medicine
DX: E78.00 Pure hypercholesterolemia, unspecified (principal)
CPT/HCPCS: 36415; 80053; 80061

== ENCOUNTER 2024-12-27 09:16 | Outpatient (AMB) | payer OTHER, SELFPAY ==
[2024-12-27 09:18] VITALS: BP 110/80; PULSE 85; O2SAT 95; BMI 25.9
--- NOTE | 2024-12-27 09:18 | A.OFFPC_ITS ---
Vital Signs 12/27/24 09:18 Height 5 ft 7 in Weight 165 lb 6 oz BMI 25.9 BP 110/80 Blood Pressure Location Lt brachial Position Sitting Pulse 85 Pulse Source Pulse Oximeter Pulse Oximetry (%) 95 Oxygen Delivery Method Room Air Intake Visit Reasons: hyperlipidemia Payroll Machine Operator Required: No Accompanied by: Self / Same As Patient Allergies No Known Allergies Allergy (Verified 12/27/24 09:51) Medication List - Last Reconciled 12/27/24 by Devon Mendoza MD atorvastatin 10 mg PO BEDTIME 90 days cholecalciferol (vitamin D3) 50 mcg PO DAILY 90 days mometasone 0.1% 1 appl topical DAILY PRN Tobacco use date assessed: 12/27/24 Dental Screening Dental Screen Date: 12/27/24 Did you have a dental visit in the last 12 months?: No Did you have a dental problem in the last 6 months where you did not have access to dental care?: No Was dental information given to patient?: No HPI hyperlipidemia HPI Details Patient comes in today for his follow up visit States that he feels okay He denies any headaches or dizziness Denies any chest pains, no increased SOB No nausea/vomiting, no abdominal pain No change in bowel habits noted He had his follow up labs done last week - to discuss his results [facility] Medical History Pure hypercholesterolemia Impaired fasting glucose Vitamin D deficiency Overweight (BMI 25.0-29.9) Smoker Chest discomfort Surgical History Hx of colonoscopy (~11/15/20) Family History Father Heart disease Other No family history of colorectal cancer Social History Household Members Other:: no children Housing: House Alcohol intake: never Patient Tobacco Use Status: Current everyday Tobacco user Tobacco use type: Cigarette Cigarette Packs Per Day: 1 Cigarettes Per Day: 20 e-Cigarette/Vaping Use: Never Used Second Hand Smoke Exposure: Yes service: No 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 Depression Screening Interpretation: Negative Depression Screening Done: Yes Source: Developed by Drs. Lucio Do, Stefanie Liu, Nick Willingham and colleagues, with an educational renetta from [employer]. Thrive Questionnaire Date Thrive assessed: 11/08/24 Currently or been in a relationship where the following occur: No concerns reported THRIVE Score: 0 KELY-7 AMB Questionnaire KELY-7 Date KELY - 7 assessed: 11/08/24 Source: Developed by Drs. Lucio Do, Stefanie Liu, Nick Willingham and colleagues, with an educational renetta from [employer]. Review of Systems Const Denies chills, Denies fatigue, Denies fever(s) and Denies headache(s) ENT Denies dysphagia, Denies dizziness, Denies otalgia, Denies headache(s), Denies neck pain, Denies odynophagia and Denies sore throat Card Denies chest pain, Denies rapid heart rate, Denies irregular heart rhythm, Denies palpitations and Denies dyspnea Resp Denies chest congestion, Denies cough and Denies dyspnea GI Denies abdominal pain, Denies constipation, Denies dysphagia, Denies heartburn, Denies diarrhea, Denies nausea, Denies odynophagia and Denies vomiting Denies difficulty urinating, Denies dysuria, Denies nocturia and Denies urinary frequency Musc Denies back pain, Denies arthralgias and Denies neck pain Skin/Breast Denies rash Neuro Denies dizziness, Denies headache(s) and Denies paresthesias Endo Denies fatigue and Denies palpitations Physical exam (Primary Care) Vital Signs: Last Vital Signs Pulse 85 12/27/24 09:18 BP 110/80 12/27/24 09:18 Pulse Ox 95 12/27/24 09:18 Oxygen Delivery Method Room Air 12/27/24 09:18 BMI result Body Mass Index 25.9 Tobacco/Smoking Status: Tobacco use Status Tobacco use date assessed 12/27/24 12/27/24 09:18 Patient Tobacco Use Status Current everyday Tobacco 12/27/24 09:18 Tobacco use type Cigarette 12/27/24 09:18 e-Cigarette/Vaping Use Never Used 12/27/24 09:18 Depression Screening Interpretation: Negative Thrive Assessment: Date of Thrive Assessment Date Thrive assessed 11/08/24 12/27/24 09:18 Currently or been in a relationship where the following occur: No concerns reported Const General: no acute distress and alert HENMT Ears: TM's normal bilaterally and EAC's normal Throat: Yes posterior oropharynx normal and Yes tonsils normal (no TP congestion) Neck Neck: Yes supple and No lymphadenopathy Thyroid: Thyroid normal Resp Auscultation: no crackles, no rales, no wheezes and diminished lung sounds (slightly but CTA) bilateral Cardio Rate: regular rate Rhythm: regular rhythm Heart sounds: no murmurs GI Palpation (GI): Soft to palpation and nontender Auscultation: normal bowel sounds General: Yes no CVA tenderness Back/Spine/Pelvis Back: no CVA tenderness Thoracic/Lumbar Spine: No lumbar spinal tenderness Skin Rashes: no rashes Extrem General: Yes no clubbing, cyanosis or edema Results Reviewed Results Reviewed: Laboratory Tests 12/20/24 08:47 Sodium 144 Potassium 4.0 Creatinine 0.74 Estimated GFR > 60 Fasting Glucose 109 H Calcium 8.8 AST 26 ALT 33 Triglycerides 75 Cholesterol 161 LDL Cholesterol, Calc 94 HDL Cholesterol 52 Coding Level of Care Code Est Pt Level 4 (08822) Diagnoses Chest discomfort R07.89 Exertional dyspnea R06.09 Pure hypercholesterolemia E78.00 Impaired fasting glucose R73.01 Vitamin D deficiency E55.9 Smoker F17.200 Overweight (BMI 25.0-29.9) E66.3 Assessment & Plan Assessment & Plan (1) Chest discomfort: Code(s): R07.89 - Other chest pain Category: Medical Plan: MOSTLY RESOLVED - patient states that his chest symptoms have improved significantly lately and he is not bothered by these as much as he used to Treadmill stress testing done a couple of years ago was equivocal as he could not complete the exam due to SOB and fatigue He was then sent for pharmacologic nuclear stress testing Myocardial perfusion study done in 12/2023 revealed (+) mild intensity ostia territory ischemia. Gated LVEF is 58% Have advised patient again that he needs to work aggressively on lowering his overall risks, including lowering his cholesterol levels and especially quitting smoking (2) Exertional dyspnea: Code(s): R06.09 - Other forms of dyspnea Category: Medical Plan: IMPROVED somewhat - patient is advised again that this is likely due to his smoking and should improve a lot if he is able to quit smoking completely He was also noted to have mild dilation of the LV cavity on his recent myocardial perfusion study Echo done on 05/17/2024 came out mostly normal, with LVEF at 64% and left ventricular cavity size was normal. Diastolic function was also normal for age although there is a mild dilatation of the ascending aorta measuring 3.6 cm (3) Pure hypercholesterolemia: Code(s): E78.00 - Pure hypercholesterolemia, unspecified Category: Medical Plan: Results of his labs done last week reviewed and discussed with patient - he is advised that his cholesterol numbers now are a lot better than they were last year Reinforced low cholesterol diet Continue Atorvastatin 10 mg QD Will have patient recheck his fasting lipids and labs again in 4 months for follow up (4) Impaired fasting glucose: Code(s): R73.01 - Impaired fasting glucose Category: Medical Plan: His FBS was slightly elevated at 109 mg/dl on his recent labs; HgbA1c was normal at 5.8% when previously checked in October 2023 Reinforced low calorie/low carb diet - patient admits to eating a lot of sweets more than usual lately and will work on this (5) Vitamin D deficiency: Code(s): E55.9 - Vitamin D deficiency, unspecified Category: Medical Plan: Continue Vitamin D3 2000 units QD (6) Smoker: Code(s): F17.200 - Nicotine dependence, unspecified, uncomplicated Category: Social Hx Plan: Patient is currently still smoking about a pack a day He is counseled again on complete smoking cessation, especially in light of his recent nuclear perfusion study finding of mild instensity ischemia in the RCA territory Chest x-rays done recently also came out normal (7) Overweight (BMI 25.0-29.9): Code(s): E66.3 - Overweight Category: Medical Plan: Reinforced diet/exercise as tolerated/lose weight Plan Follow up in 4 months Orders: Orders Complete Blood Count Auto Diff 4 Months D64.9 - Anemia, unspecified Lipid Panel 4 Months E78.00 - Pure hypercholesterolemia, unspecified Vitamin D 25-OH Total 4 Months E55.9 - Vitamin D deficiency, unspecified Comprehensive Adolphus. Panel Fast 4 Months E78.00 - Pure hypercholesterolemia, unspecified UA CC w/rflx Micro + Cult 4 Months R30.0 - Dysuria Hemoglobin A1c 4 Months R73.01 - Impaired fasting glucose
--- OUTSIDE RECORDS SUMMARY | 2024-12-27 10:54 | XMS_ITS | Clinical Summary ---
Author Organization [facility] Address [address] [place] [address] Care Team Providers Care Nurse'S Companion Name Role Phone Dayoerasmo Brodie PATEL Primary Care Provider [phone] Source Comments PLEASE NOTE, if this patient [...] (07/06/2017): - CT scan at [facility] in 2017: mild emphysematous changes. Tiny 2 [...] Plan of Treatment Not on file Insurance [place] MEDICAID Care Teams Nurse'S Companion Relationship Specialty Start Date End Date Brodie Fraser NP [address] [place] [address] PCP - General 02/19/18
== END 2024-12-27 10:02 | disposition home or self-care (01) ==
LOC: HO.HMCH 09:17
PROVIDERS: PCP Internal Medicine; Visit Provider Internal Medicine
DX: R07.89 Other chest pain (principal); R06.09 Other forms of dyspnea; E78.00 Pure hypercholesterolemia, unspecified; R73.01 Impaired fasting glucose; E55.9 Vitamin D deficiency, unspecified; F17.200 Nicotine dependence, unspecified, uncomplicated; E66.3 Overweight

== ENCOUNTER → 2024-12-27 09:16 | Outpatient (BNVA) | payer OTHER, SELFPAY | PROVIDERS: PCP Internal Medicine; Visit Provider Internal Medicine | DX: R30.0 Dysuria (principal); E78.5 Hyperlipidemia, unspecified; R07.89 Other chest pain; R06.09 Other forms of dyspnea; E78.00 Pure hypercholesterolemia, unspecified; R73.01 Impaired fasting glucose; E55.9 Vitamin D deficiency, unspecified; F17.210 Nicotine dependence, cigarettes, uncomplicated; E66.3 Overweight; D64.9 Anemia, unspecified; Z68.25 Body mass index [BMI] 25.0-25.9, adult | CPT/HCPCS: 99212 ==